=== PATIENT | female | born 1940 | race Caucasian/White ===

== ENCOUNTER 2017-04-22 09:18 | Inpatient (IN) | payer MEDICARE, OTHER, SELFPAY ==
[2017-04-22] VITALS (15 sets, daily range): BP systolic 125–149; BP diastolic 58–102; PULSE 68–90; RESP 15–20; TEMP 36.2–36.8; O2SAT 90–98; BMI 48.3; BMI 46.4; BMI 48.4
--- NOTE | 2017-04-22 09:45 | RAD_ITS ---
STUDY: X-RAY CHEST REASON FOR EXAM: Female, 76 years old. Cough and confusion. TECHNIQUE: Single AP portable view of the chest. COMPARISON: Comparison is made with prior study dated January 25, 2017. FINDINGS: EKG electrodes are seen. A right-sided portacatheter is seen. Pulmonary vascular redistribution and mild CHF. Small bilateral pleural effusions with underlying atelectasis and/or infiltration worse at the left lung base. Sternal cerclage wires and vascular clips are present from a prior sternotomy and coronary artery bypass graft procedure (CABG). Normal mediastinum and elder. Normal visualized pulmonary arteries. There is atherosclerotic calcification of the aortic arch with tortuosity. Normal visualized thoracic spine. Normal visualized ribs, clavicles, and shoulders. There is no demonstrated abnormality of the visualized soft tissue structures of the upper abdomen. RAD/Chest 1 View (Portable) IMPRESSION: CHF with small bilateral pleural effusions left greater than right and bibasilar atelectasis and/or infiltration. Electronically Signed: Rusty Martines MD at 10:50 EDT Tel [phone], Service support ,
--- NOTE | 2017-04-22 09:45 | EKG12_ITS ---
Test Reason : WEAKNESS Blood Pressure : / mmHG Vent. Rate : 077 BPM Atrial Rate : 047 BPM P-R Int : 000 ms QRS Dur : 072 ms QT Int : 330 ms P-R-T Axes : 000 058 029 degrees QTc Int : 373 ms Atrial fibrillation Low voltage QRS Nonspecific ST and T wave abnormality Abnormal ECG Confirmed by CHERIE KITCHEN, DEISY ([id number]), editor trade journal ANN EGAN ([id number]) on 04/26/2017 2:34:17 PM Referred By: JIMBO Confirmed By:DEISY CRESPO MD
[2017-04-22 10:36] LABS: Allen Test POS; Base Excess 19 mmol/L (-2 to +2); Bicarbonate 42.8 mmol/L (22-26); Blood Gas Specimen Type ART; O2 Delivery Device Nasal Can; PO2 59 mmHG (75-100); SITE L Radial; SO2 90 % (95-99); Time Given 1028; Total Carbon Dioxide 45 mmol/L; pCO2 63.2 mmHg (35-45); pH 7.44 (7.35-7.45)
--- NOTE | 2017-04-22 10:39 | ED.VISSUMM ---
- ER Visit Summary Date of Service: 04/22/17 Chief Complaint: Fatigue and confusion History of Present Illness: The patient is a 76 F presenting to the emergency department for evaluation secondary to generalized fatigue weakness and confusion. Patient has a complex medical history including coronary artery disease, COPD, diabetes, hypertension, elevated cholesterol, chronic kidney disease, A. fib, and chronic debility. Apparently over the course of the last 2 days she has been having increasing confusion, generalized weakness, and fatigue. She does endorse that she has been having a cough and mild sore throat. She denies any fevers nausea vomiting or diarrhea. Patient's daughter is a nurse, and apparently she took a urine sample today and it did show up as positive for infection. Patient has been experiencing nonlateralizing weakness and increased difficulty with ambulating. Review of systems otherwise negative. Physical Examination: Vital signs within normal limits. Obese female no acute distress somewhat sedate. Head normocephalic atraumatic. Dry mucous membranes noted. Neck supple heart irregular lungs sounds showed evidence of rhonchi and wheezes in the upper and lower lung fernandez. Abdomen soft nontender. +1 bilaterally symmetric peripheral edema. Skin was normal color. Patient was alert and oriented but somewhat sedate. Remainder physical otherwise unremarkable. Test Results: EKG shows A. fib with a rate of [address] segments and low voltage consistent with prior EKG. CBC shows leukocytosis of 14.6, chemistry shows CO2 retention of 40, liver panel shows elevated alkaline phosphatase, lactate negative, ABG remarkable for chronic respiratory acidosis, chest x-ray shows CHF with bilateral effusions left greater than right, urinalysis shows evidence of infection Emergency Department Course and Treatment: Patient presented for evaluation secondary to altered mentation and a possible UTI. Workup was noted as above and does show evidence of a UTI. Patient actually does not technically meet sepsis criteria at this point, but cultures were obtained anyway. Patient was given a dose of Rocephin. Given the patient's chronic illness and her concomitant delirium I do believe that she requires admission. I discussed this with the hospitalist. Disposition: Admission Impression: 1. UTI 2. Delirium ED Disposition - Plan for ED Patient: Chief Complaint: Confusion
[2017-04-22 11:11] LABS: Absolute Lymphocyte Count 1.37 X10^3/ul (0.83-4.51); Absolute Neutrophil Count 12.3 X10^3/uL (2.0-7.7); Basophil# 0.05 X10^3/uL; Basophil% 0.3 % (0-1); Eosinophil# 0.09 X10^3/uL; Eosinophils% 0.6 % (0-5); Hematocrit 39.3 % (37-47); Hemoglobin 11.3 g/dl (12.0-15.0); Lymphocyte # 1.37 X10^3/ul (4.0); Lymphocyte % 9.4 % (19-41); Mean Corp Hgb Conc 28.8 g/gl (32-36); Mean Corpuscular Hgb 26.6 pg (27.0-32.0); Mean Corpuscular Volume 92.5 fL (81-99); Mean Platelet Vol. 9.4 fl (6.2-12.0); Monocyte# 0.76 X10^3/uL; Monocyte% 5.2 % (0-10); Neutrophil # 12.31 X10^3/uL (2.7-7.7); Neutrophil % 84.2 % (47-70); POSITIVE COUNT NO; POSITIVE DIFFERENTIAL NO; POSITIVE MORPHOLOGY NO; Platelet Count 320 K/mm3 (150-450); Red Blood Count 4.25 M/mm3 (4.2-5.4); White Blood Count 14.6 K/mm3 (4.4-11.0)
[2017-04-22 11:24] LABS: International Normalized Ratio 1.4; Prothrombin Time (Protime)PT. 16.7 SECONDS (11.7-14.9)
[2017-04-22 11:25] LABS: Partial Thromboplast Time 38.1 Seconds (24.1-36.2)
[2017-04-22 11:26] LABS: ALB/GLOB Ratio 0.6 RATIO (0.9-2.4); AST(SGOT) 13 U/L (15-37); Alanine Aminotransfer ALT/SGPT 16 U/L (12-78); Albumin, Serum 2.7 g/dL (3.4-5.0); Alkaline Phosphatase 130 U/L (45-117); Anion Gap 5 (5-15); BUN 19 mg/dL (7-18); BUN/Creat Ratio 18.4 RATIO (10-20); Calcium,Total 9.2 mg/dL (8.5-10.1); Chloride 92 mmol/L (98-107); Creatinine, Serum 1.03 mg/dL (0.55-1.02); EST Glomerular Filtration Rate 55 mL/min (>60); Est Glom Filt Rate - Afr Amer 67 mL/min (>60); Estimated Creatinine Clearance 39.04 ml/min; Globulin 4.2 g/dL (2.3-3.5); Glucose 191 mg/dL (70-110); Potassium 4.1 mmol/L (3.5-5.1); Protein, Total 6.9 g/dL (6.4-8.2); Sodium Level 137 mmol/L (136-145)
[2017-04-22 11:51] LABS: Lactic Acid 1.6 mmol/L (0.4-2.0)
[2017-04-22 12:05] LABS: Mucous, Urine 0 SEEN /hpf (<or=2+); Squamous Epithelial Cells - UA 0 SEEN /hpf (5-10)
[2017-04-22 12:16] LABS: Color, Urine Yellow (Yellow); Glucose, Dipstick NEGATIVE (Normal); Ketone-Dipstick Negative (Negative); Nitrite-Dipstick Negative (Negative); Occult Blood-Urine 150 /ul (Negative); Protein-Dipstick 30 mg/dl (Negative); Urine Bilirubin Dipstick Negative (Negative); Urine Clarity Turbid (Clear); Urine Urobilinogen 1 mg/dl (Normal); Urine pH 6.5 (5.0 - 8.0)
[2017-04-22 12:17] LABS: Leukocyte Esterase-Dipstick 500 /ul (Negative)
[2017-04-22 12:25] LABS: Bacteria 1+ /hpf (None Seen); Red Blood Cells-Urine 5-10 SEEN /hpf (0-5); White Blood Cells >100 SEEN /hpf (0-5); Yeast-Urine 4+ /hpf (None Seen)
[2017-04-22 16:36] LABS: Bedside Glucose 135 mg/dL (70-110)
[2017-04-22] MEDS: Ipratropium/Albuterol Sulfate 3 ML AMPUL.NEB INHALATION ×2 (16:54→22:52)
--- NOTE | 2017-04-22 17:17 | PCM.HP.STD ---
Problem List (1) Acute cystitis Status: Acute Qualifiers: Hematuria presence: without hematuria Qualified Code(s): N30.00 - Acute cystitis without hematuria (2) Mental status change Status: Acute Qualifiers: Altered mental status type: delirium Qualified Code(s): R41.0 - Disorientation, unspecified (3) Anxiety Status: Chronic (4) Atrial fibrillation Status: Chronic Qualifiers: Atrial fibrillation type: chronic Qualified Code(s): I48.2 - Chronic atrial fibrillation (5) Benign hypertension Status: Chronic (6) COPD, severe Status: Chronic Comment: With chronic respiration failure (7) Chronic low back pain Status: Chronic (8) Chronic respiratory failure Status: Chronic Qualifiers: Respiratory failure complication: hypoxia and hypercapnia Comment: On 4 L/m at baseline (9) Coronary artery disease Status: Chronic Qualifiers: Coronary Disease-Associated Artery/Lesion type: [place] artery [place] vs. transplanted heart: [place] heart Associated angina: without angina Qualified Code(s): I25.10 - Atherosclerotic heart disease of [place] coronary artery without angina pectoris Comment: Status post CABG (10) Obesity Status: Chronic Qualifiers: Obesity type: due to excess calories Obesity classification: adult class 3 (BMI >= 40) Serious obesity comorbidity presence: with serious comorbidity Body mass index: BMI 45.0-49.9 Qualified Code(s): E66.09 - Other obesity due to excess calories; Z68.42 - Body mass index (BMI) 45.0-49.9, adult (11) Type II diabetes mellitus Status: Chronic Qualifiers: Diabetes mellitus complication status: with neurologic complications Diabetes mellitus complication detail: with autonomic neuropathy Diabetes mellitus termite control technician insulin use: with termite control technician use Qualified Code(s): E11.43 - Type 2 diabetes mellitus with diabetic autonomic (poly)neuropathy; Z79.4 - senior care (current) use of insulin History of Present Illness Date of Admission: 04/22/17 Chief Complaint: Confusion, lethargy. Patient is a 76 years old female with multiple medical problems, brought to ED for 2 days history of increasing lethargy and confusion, admitted on 04/22/17. She has chronic respiratory failure with home oxygen with underling COPD, probable obese hypoventilation syndrome, and untreated sleep apnea. In ED, she was found to have mildly elevated WBC to 14.6. Vital signs were stable, and UA was positive. Serum CO2 was 40, ABG was done. PH is 7.44 and PCO 2 es 63, which are actually close to her baseline. She did not wake up during the interview, history was taken from her . Other than hypersomnolence, lethargy, and confusion, no other symptoms. She has chronic productive cough which is unchanged, but she did not have any additional urinary symptoms. Past Medical History Past Medical History (Chronic Problems): Chronic Problems Anxiety (Chronic) Atrial fibrillation (Chronic) Benign hypertension (Chronic) COPD, severe (Chronic) With chronic respiration failure Chronic low back pain (Chronic) Chronic respiratory failure (Chronic) On 4 L/m at baseline Coronary artery disease (Chronic) Status post CABG Diabetic gastroparesis (Chronic) Hx of CABG (Chronic) Hyperlipidemia (Chronic) Obesity (Chronic) S/P CABG x 3 (Chronic) Tobacco dependence syndrome (Chronic) Type II diabetes mellitus (Chronic) Allergies No Known Allergies Allergy (Verified 04/22/17 09:23) Home Medications: Ambulatory Orders Medication Instructions Recorded Apixaban [Eliquis] 5 mg PO BID 03/31/17 Atorvastatin Calcium [Lipitor] 40 mg PO QHS 03/31/17 Ferrous Sulfate [Iron] 325 mg PO DAILY 03/31/17 Furosemide [Lasix] 40 mg PO LUNCH 03/31/17 Furosemide [Lasix] 80 mg PO DAILY 03/31/17 Gabapentin [Neurontin] 300 mg PO BIDCM 03/31/17 Gabapentin [Neurontin] 600 mg PO QHS 03/31/17 Guaifenesin [Mucinex] 1,200 mg PO BID 03/31/17 Insulin Aspart [Novolog Flexpen 10 units SC TIDCM 03/31/17 ([facility])] Insulin Detemir [Levemir] 35 unit SQ BID 03/31/17 Isosorbide Mononitrate [Imdur] 30 mg PO DAILY 03/31/17 Magnesium Oxide [Mag-Ox 400] 400 mg PO QHS 03/31/17 MorphINE [MS Contin] 15 mg PO BID 03/31/17 Multivitamins,Therapeutic 1 tablet PO DAILY 03/31/17 [Multivitamin] Oxybutynin [Ditropan] 5 mg PO DAILY 03/31/17 Oxycodone [Oxyir] 1 - 2 tab PO Q4H PRN 03/31/17 Pantoprazole Sodium [Protonix] 40 mg PO DAILY 03/31/17 Polyethylene Glycol 3350 [Miralax] 17 gm PO DAILY 03/31/17 Potassium Chloride [K-Dur] 20 meq PO QHS 03/31/17 Spironolactone [Aldactone] 25 mg PO DAILY 03/31/17 Venlafaxine HCl [Venlafaxine HCl 225 mg PO DAILY 03/31/17 ER] Insulin Aspart [Novolog Flexpen See Protocol SC TIDCM 04/22/17 ([facility])] Ipratropium/Albuterol Sulfate 3 ml INHALATION Q6HWA.RT 04/22/17 [Duoneb] Lorazepam [Ativan] 0.5 mg PO TID PRN PRN 04/22/17 Surgical History: cataract, coronary bypass surgery, - - ankle surgery and skin grafts-left leg Psychiatric History: - - Dementia GRID CASTER History: No pertinent GRID CASTER history Smoking Status: Former smoker - *Family History Maternal History Items: Heart Disease, Hypertension, Stroke Paternal History Items: Hypertension, - - TB Sibling History Items: Cancer, Diabetes, Heart Disease, Renal Disease, - - TB Review of Systems Unable to obtain accurate/complete ROS d/t: Patient is not fully awke and confused. History taken from her . VTE Information - Inpt Only VTE Present on Admission: No VTE Mechan Device Prophylaxis: None VTE Pharm Prophylaxis ordered?: Yes Patient Problems: Active and Suspected Problems Acute cystitis (Acute) Mental status change (Acute) Objective: In general, patient is obese elderly female. She is somnolent / lethargic. HEENT: Head is atraumatic, and normocephalic. Pupils are equal, round, and reactive to light and accommodations. Neck is supple. There is no lymphadenopathy, or thyromegaly. Oral mucosa is pink. There are no lesions. Heart: Auscultation is normal with regular rhythm and rate. There is no extra heart sounds, or murmurs. S1 and S2 are present. Point of maximal impulse is not displaced. Lungs: Upper airway rhonchi. Diminished breath sounds bilaterally. Abdomen: Abdominal wall is non-tender, and non-distended. Obese. There is no palpable mass or organomegaly. Normoactive bowel sounds are present. Extremities: There is no cyanosis or clubbing. Peripheral pulses are palpable. There is no edema. Fixed left ankle from previous infection. Skin: There are no any skin discoloration or lesions. Dry. Neurological: CN II - XII are grossly intact. She is able to move all extremities. No further examination was done due to her mental status. - Physical Exam Vital Signs Temp Pulse Resp BP Pulse Ox 97.5 F 68 20 125/58 94 04/22/17 15:30 04/22/17 16:55 04/22/17 16:55 04/22/17 15:30 04/22/17 15:30 Oxygen Flow Rate 6 Oxygen Delivery Method Venturi Mask Weight: 262 lb 2.074 oz Body Mass Index (BMI) 46.4 POC Glucose 04/22/17 16:10 POC Glucose 135 H Diagnostic Data Chest X-Ray 04/22/17 09:45 IMPRESSION: CHF with small bilateral pleural effusions left greater than right and bibasilar atelectasis and/or infiltration. Electronically Signed: Rusty Martines MD at 10:50 EDT Tel [phone], Service support , Assessment/Plan Active and Suspected Problems Acute cystitis (Acute) Mental status change (Acute) Patient is a 76 years old female with multiple medical problems, brought to ED for 2 days history of increasing lethargy and confusion, admitted on 04/22/17. She has chronic respiratory failure with home oxygen with underling COPD, probable obese hypoventilation syndrome, and untreated sleep apnea. In ED, she was found to have mildly elevated WBC to 14.6. Vital signs were stable, and UA was positive. Serum CO2 was 40, ABG was done. PH is 7.44 and PCO 2 is 63, which are actually close to her baseline. She did not wake up during the interview, history was taken from her . Other than hypersomnolence, lethargy, and confusion, no other symptoms. She has chronic productive cough which is unchanged, but she did not have any additional urinary symptoms. #1 Acute mental status change with delirium. Likely due to infectious process with acute cystitis. CO2 narcolepsy is possible, but her PCO2 appears to be close to her baseline. Treat cystitis with antibiotics. #2 Acute cystitis. Await blood culture and urine culture. UA positive. Ceftriaxone 1 gram IVPB once a day. #3 Chronic respiratory failure with hypoxemia and hypercapnia. Continue oxygen. She is on bronchodilator aerosol treatment only. Continue. Keep Oxygen saturation just around 90% to avoid worsening of CO2 retention. #4 COPD. With untreated sleep apnea and probable obese hypoventilation. She had refused CPAP in the past. 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 Hold Meal time aspart 10 units tid. Reduce Levemir to 25 units once a day from bid due to her mental status change. She is not awake enough to keep oral intake. BS check AC/HS. #6 Atrial fibrillation, chronic. Telemetry monitoring. Rate controlled without negative chronotropic agents. On Eliquis for anticoagulation. #7 Coronary artery disease. Continue statin. She is not on BB or aspirin. #8 chronic CHF, with diastolic dysfunction. 2D-echocardiogram 12/15/16 showed preserved LV function, EF 65%. LVH. RVSP 42 mmHg. She is dry. IVF today. Hold Lasix. Reevaluate in AM. #9 Mild pulmonary hypertension. RVSP 42 mmHg as above per 2D-echocardiogram. She is on oxygen. VTE prophylaxis: PO Eliquis. GI prophylaxis: PPI po. Patient is full code. Code status discussed with her on 04/22/17. Disposition: to be determined.
--- NOTE | 2017-04-22 17:28 | HP.PCM_ITS ---
Problem List (1) Acute cystitis Status: Acute Qualifiers: Hematuria presence: without hematuria Qualified Code(s): N30.00 - Acute cystitis without hematuria (2) Mental status change Status: Acute Qualifiers: Altered mental status type: delirium Qualified Code(s): R41.0 - Disorientation, unspecified (3) Anxiety Status: Chronic (4) Atrial fibrillation Status: Chronic Qualifiers: Atrial fibrillation type: chronic Qualified Code(s): I48.2 - Chronic atrial fibrillation (5) Benign hypertension Status: Chronic (6) COPD, severe Status: Chronic Comment: With chronic respiration failure (7) Chronic low back pain Status: Chronic (8) Chronic respiratory failure Status: Chronic Qualifiers: Respiratory failure complication: hypoxia and hypercapnia Comment: On 4 L/m at baseline (9) Coronary artery disease Status: Chronic Qualifiers: Coronary Disease-Associated Artery/Lesion type: [place] artery [place] vs. transplanted heart: [place] heart Associated angina: without angina Qualified Code(s): I25.10 - Atherosclerotic heart disease of [place] coronary artery without angina pectoris Comment: Status post CABG (10) Obesity Status: Chronic Qualifiers: Obesity type: due to excess calories Obesity classification: adult class 3 (BMI >= 40) Serious obesity comorbidity presence: with serious comorbidity Body mass index: BMI 45.0-49.9 Qualified Code(s): E66.09 - Other obesity due to excess calories; Z68.42 - Body mass index (BMI) 45.0-49.9, adult (11) Type II diabetes mellitus Status: Chronic Qualifiers: Diabetes mellitus complication status: with neurologic complications Diabetes mellitus complication detail: with autonomic neuropathy Diabetes mellitus intermediate designer insulin use: with intermediate designer use Qualified Code(s): E11.43 - Type 2 diabetes mellitus with diabetic autonomic (poly)neuropathy; Z79.4 - custodial (current) use of insulin History of Present Illness Date of Admission: 04/22/17 Chief Complaint: Confusion, lethargy. Patient is a 76 years old female with multiple medical problems, brought to ED for 2 days history of increasing lethargy and confusion, admitted on 04/22/17. She has chronic respiratory failure with home oxygen with underling COPD, probable obese hypoventilation syndrome, and untreated sleep apnea. In ED , she was found to have mildly elevated WBC to 14.6. Vital signs were stable, and UA was positive. Serum CO2 was 40, ABG was done. PH is 7.44 and PCO 2 es 63, which are actually close to her baseline. She did not wake up during the interview, history was taken from her . Other than hypersomnolence, lethargy, and confusion, no other symptoms. She has chronic productive cough which is unchanged, but she did not have any additional urinary symptoms. Past Medical History Past Medical History (Chronic Problems): Chronic Problems Anxiety (Chronic) Atrial fibrillation (Chronic) Benign hypertension (Chronic) COPD, severe (Chronic) With chronic respiration failure Chronic low back pain (Chronic) Chronic respiratory failure (Chronic) On 4 L/m at baseline Coronary artery disease (Chronic) Status post CABG Diabetic gastroparesis (Chronic) Hx of CABG (Chronic) Hyperlipidemia (Chronic) Obesity (Chronic) S/P CABG x 3 (Chronic) Tobacco dependence syndrome (Chronic) Type II diabetes mellitus (Chronic) Allergies No Known Allergies Allergy (Verified 04/22/17 09:23) Home Medications: Ambulatory Orders Medication Instructions Recorded Apixaban [Eliquis] 5 mg PO BID 03/31/17 Atorvastatin Calcium [Lipitor] 40 mg PO QHS 03/31/17 Ferrous Sulfate [Iron] 325 mg PO DAILY 03/31/17 Furosemide [Lasix] 40 mg PO LUNCH 03/31/17 Furosemide [Lasix] 80 mg PO DAILY 03/31/17 Gabapentin [Neurontin] 300 mg PO BIDCM 03/31/17 Gabapentin [Neurontin] 600 mg PO QHS 03/31/17 Guaifenesin [Mucinex] 1,200 mg PO BID 03/31/17 Insulin Aspart [Novolog Flexpen 10 units SC TIDCM 03/31/17 ([facility])] Insulin Detemir [Levemir] 35 unit SQ BID 03/31/17 Isosorbide Mononitrate [Imdur] 30 mg PO DAILY 03/31/17 Magnesium Oxide [Mag-Ox 400] 400 mg PO QHS 03/31/17 MorphINE [MS Contin] 15 mg PO BID 03/31/17 Multivitamins,Therapeutic 1 tablet PO DAILY 03/31/17 [Multivitamin] Oxybutynin [Ditropan] 5 mg PO DAILY 03/31/17 Oxycodone [Oxyir] 1 - 2 tab PO Q4H PRN 03/31/17 Pantoprazole Sodium [Protonix] 40 mg PO DAILY 03/31/17 Polyethylene Glycol 3350 [Miralax] 17 gm PO DAILY 03/31/17 Potassium Chloride [K-Dur] 20 meq PO QHS 03/31/17 Spironolactone [Aldactone] 25 mg PO DAILY 03/31/17 Venlafaxine HCl [Venlafaxine HCl 225 mg PO DAILY 03/31/17 ER] Insulin Aspart [Novolog Flexpen See Protocol SC TIDCM 04/22/17 ([facility])] Ipratropium/Albuterol Sulfate 3 ml INHALATION Q6HWA.RT 04/22/17 [Duoneb] Lorazepam [Ativan] 0.5 mg PO TID PRN PRN 04/22/17 Surgical History: cataract, coronary bypass surgery, - - ankle surgery and skin grafts-left leg Psychiatric History: - - Dementia CLINICAL SERVICES CONSULTANT History: No pertinent CLINICAL SERVICES CONSULTANT history Smoking Status: Former smoker - *Family History Maternal History Items: Heart Disease, Hypertension, Stroke Paternal History Items: Hypertension, - - TB Sibling History Items: Cancer, Diabetes, Heart Disease, Renal Disease, - - TB Review of Systems Unable to obtain accurate/complete ROS d/t: Patient is not fully awke and confused. History taken from her . VTE Information - Inpt Only VTE Present on Admission: No VTE Mechan Device Prophylaxis: None VTE Pharm Prophylaxis ordered?: Yes Patient Problems: Active and Suspected Problems Acute cystitis (Acute) Mental status change (Acute) Objective: In general, patient is obese elderly female. She is somnolent / lethargic. HEENT: Head is atraumatic, and normocephalic. Pupils are equal, round, and reactive to light and accommodations. Neck is supple. There is no lymphadenopathy, or thyromegaly. Oral mucosa is pink. There are no lesions. Heart: Auscultation is normal with regular rhythm and rate. There is no extra heart sounds, or murmurs. S1 and S2 are present. Point of maximal impulse is not displaced. Lungs: Upper airway rhonchi. Diminished breath sounds bilaterally. Abdomen: Abdominal wall is non-tender, and non-distended. Obese. There is no palpable mass or organomegaly. Normoactive bowel sounds are present. Extremities: There is no cyanosis or clubbing. Peripheral pulses are palpable. There is no edema. Fixed left ankle from previous infection. Skin: There are no any skin discoloration or lesions. Dry. Neurological: CN II - XII are grossly intact. She is able to move all extremities. No further examination was done due to her mental status. - Physical Exam Vital Signs Temp Pulse Resp BP Pulse Ox 97.5 F 68 20 125/58 94 04/22/17 15:30 04/22/17 16:55 04/22/17 16:55 04/22/17 15:30 04/22/17 15:30 Oxygen Flow Rate 6 Oxygen Delivery Method Venturi Mask Weight: 262 lb 2.074 oz Body Mass Index (BMI) 46.4 POC Glucose 04/22/17 16:10 POC Glucose 135 H Diagnostic Data Chest X-Ray 04/22/17 09:45 IMPRESSION: CHF with small bilateral pleural effusions left greater than right and bibasilar atelectasis and/or infiltration. Electronically Signed: Rusty Martines MD at 10:50 EDT Tel [phone], Service support , Assessment/Plan Active and Suspected Problems Acute cystitis (Acute) Mental status change (Acute) Patient is a 76 years old female with multiple medical problems, brought to ED for 2 days history of increasing lethargy and confusion, admitted on 04/22/17. She has chronic respiratory failure with home oxygen with underling COPD, probable obese hypoventilation syndrome, and untreated sleep apnea. In ED , she was found to have mildly elevated WBC to 14.6. Vital signs were stable, and UA was positive. Serum CO2 was 40, ABG was done. PH is 7.44 and PCO 2 is 63, which are actually close to her baseline. She did not wake up during the interview, history was taken from her . Other than hypersomnolence, lethargy, and confusion, no other symptoms. She has chronic productive cough which is unchanged, but she did not have any additional urinary symptoms. #1 Acute mental status change with delirium. Likely due to infectious process with acute cystitis. CO2 narcolepsy is possible, but her PCO2 appears to be close to her baseline. Treat cystitis with antibiotics. #2 Acute cystitis. Await blood culture and urine culture. UA positive. Ceftriaxone 1 gram IVPB once a day. #3 Chronic respiratory failure with hypoxemia and hypercapnia. Continue oxygen. She is on bronchodilator aerosol treatment only. Continue. Keep Oxygen saturation just around 90% to avoid worsening of CO2 retention. #4 COPD. With untreated sleep apnea and probable obese hypoventilation. She had refused CPAP in the past. 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 Hold Meal time aspart 10 units tid. Reduce Levemir to 25 units once a day from bid due to her mental status change. She is not awake enough to keep oral intake. BS check AC/HS. #6 Atrial fibrillation, chronic. Telemetry monitoring. Rate controlled without negative chronotropic agents. On Eliquis for anticoagulation. #7 Coronary artery disease. Continue statin. She is not on BB or aspirin. #8 chronic CHF, with diastolic dysfunction. 2D-echocardiogram 12/15/16 showed preserved LV function, EF 65%. LVH. RVSP 42 mmHg. She is dry. IVF today. Hold Lasix. Reevaluate in AM. #9 Mild pulmonary hypertension. RVSP 42 mmHg as above per 2D-echocardiogram. She is on oxygen. VTE prophylaxis: PO Eliquis. GI prophylaxis: PPI po. Patient is full code. Code status discussed with her on 04/22/17. Disposition: to be determined.
[2017-04-22] MEDS: 0.9% Normal Saline 1,000 ML 75 ML IV (17:37)
[2017-04-22] MEDS: Acetaminophen 325 MG Tablet 650 MG PO (19:34)
[2017-04-22] MEDS: APIXABAN 5 MG TABLET PO (22:44)
[2017-04-22] MEDS: Magnesium Oxide 400 MG Tablet PO (22:46)
[2017-04-22] MEDS: guaiFENesin 1,200 MG Tablet 1200 MG PO (22:46)
[2017-04-22] MEDS: Atorvastatin Calcium 40 MG Tablet PO (22:46)
[2017-04-22] MEDS: Gabapentin 600 MG Tablet PO (22:49)
[2017-04-23] VITALS (11 sets, daily range): BP systolic 118–146; BP diastolic 51–70; PULSE 65–78; RESP 16–22; TEMP 36.3–37.1; O2SAT 92–96
[2017-04-23 03:27] LABS: Anion Gap 9 (5-15); BUN 20 mg/dL (7-18); BUN/Creat Ratio 20.1 RATIO (10-20); Calcium,Total 8.9 mg/dL (8.5-10.1); Chloride 93 mmol/L (98-107); EST Glomerular Filtration Rate 58 mL/min (>60); Est Glom Filt Rate - Afr Amer 70 mL/min (>60); Estimated Creatinine Clearance 40.21 ml/min; Glucose 159 mg/dL (70-110); Potassium 3.9 mmol/L (3.5-5.1); Sodium Level 139 mmol/L (136-145)
[2017-04-23 03:34] LABS: Hematocrit 36.6 % (37-47); Hemoglobin 10.6 g/dl (12.0-15.0); Mean Corpuscular Hgb 26.4 pg (27.0-32.0); Mean Platelet Vol. 9.3 fl (6.2-12.0); Platelet Count 301 K/mm3 (150-450); RBC Distribution Width CV 18.1 % (11.6-14.6); RBC Distribution Width SD 60.7 fl (35.1-43.9); Red Blood Count 4.02 M/mm3 (4.2-5.4); White Blood Count 9.9 K/mm3 (4.4-11.0)
[2017-04-23 03:38] LABS: Scan Indicated on CBC? Y/N NO
[2017-04-23 04:51] LABS: Bedside Glucose 183 mg/dL (70-110)
[2017-04-23] MEDS: 0.9% Normal Saline 1,000 ML 75 ML IV ×2 (06:36→20:31)
[2017-04-23 06:46] LABS: Bedside Glucose 170 mg/dL (70-110)
[2017-04-23] MEDS: Ipratropium/Albuterol Sulfate 3 ML AMPUL.NEB INHALATION ×2 (07:04→13:03)
[2017-04-23] MEDS: Furosemide 80 MG Tablet PO (09:30)
[2017-04-23] MEDS: Gabapentin 300 MG Capsule PO ×2 (09:31→16:35)
[2017-04-23] MEDS: Venlafaxine XR 75 MG Capsule 225 MG PO (09:31)
[2017-04-23] MEDS: Polyethylene Glycol 3350 17 GM PACKET PO (09:34)
[2017-04-23] MEDS: guaiFENesin 1,200 MG Tablet 1200 MG PO ×2 (09:34→22:35)
[2017-04-23] MEDS: Spironolactone 25 MG Tablet PO (09:34)
[2017-04-23] MEDS: Pantoprazole Sodium 40 MG Tablet PO (09:34)
[2017-04-23] MEDS: Isosorbide Mononitrate 30 MG Tablet PO (09:34)
[2017-04-23] MEDS: Tolterodine Tartrate 2 MG CAP.SA PO (09:35)
[2017-04-23] MEDS: Multivitamins,Therapeutic Tablet 1 TABLET PO (09:35)
[2017-04-23] MEDS: APIXABAN 5 MG TABLET PO ×2 (09:35→22:33)
[2017-04-23] MEDS: Ferrous Sulfate 325 MG Tablet PO (09:35)
[2017-04-23] MEDS: Furosemide 40 MG Tablet PO (11:34)
[2017-04-23] MEDS: LORazepam 0.5 MG Tablet PO ×2 (11:38→22:44)
[2017-04-23] MEDS: oxyCODONE 5 MG Tablet PO ×2 (11:38→17:34)
[2017-04-23 11:46] LABS: Bedside Glucose 288 mg/dL (70-110)
--- NOTE | 2017-04-23 14:50 | CASEMGMT ---
TERESITA LLANOS reviewed chart secondary to patient's diagnosis and age. Patient did work with therapy and is requesting SNF placement. TERESITA LLANOS notified web content & social media manager who will follow-up with patient. Patient is current with home health.
--- NOTE | 2017-04-23 15:03 | CASEMGMT ---
Addendum entered by Zahida Mendoza 04/23/17 15:13: Green sheet placed on chart w/order to resume home health care in event pt goes home on weekend. RANDY Velasquez, [employer] Original Note: See assessment. SW spoke w/pt and in room in regard to discharge plan. Pt was considering SNF, however does not want to pay privately if pt does not get a 3 day inpt stay. SW explained that at present pt is here observation so may not qualify for SNF under Medicare. Pt and both state if pt does not go under Medicare will go home. Pt was in [facility] recently, left at the beginning of February. SW explained if pt goes home over the weekend, will make sure that home health is notified. If pt is still here on Tuesday, SW/CM will see pt to review discharge plan. Pt and state understanding. RE VelasquezS
[2017-04-23 16:46] LABS: Bedside Glucose 319 mg/dL (70-110)
--- NOTE | 2017-04-23 19:33 | PCM.PROGNOTE ---
Patient Problems: Active and Suspected Problems Acute cystitis (Acute) Mental status change (Acute) Subjective: She is awake and alert today. She denied of any chest pain or dyspnea, - Physical Exam General: Alert, Oriented x3, Cooperative, Well developed, Well nourished HEENT: Atraumatic, PERRLA, Normocephalic Oral: Moist Mucosa Neck: Supple, No JVD, Negative Carotid Bruits Lungs: No rhonchi, No wheeze, No rales, Diminished Cardiovascular: Regular rate, Regular Rhythm, Normal S1, Normal S2, No murmurs Abdomen: Bowel Sounds Present, Soft, Non Tender, Non-Distended, Obese Extremities: - - There is no cyanosis or clubbing. Peripheral pulses are palpable. There is no edema. Fixed left ankle from previous infection. Skin: No rashes, No breakdown, - - diffuse purpura of distal arms. Musculoskeletal: No Tenderness to Palpation of Joints or Extremities, No Muscle Wasting Lymphatic: No Cervical, Supraclavicular, or Inguinal Adenopathy Neurological: Cranial nerves II-XII grossly intact, Neuro grossly intact Psych/Mental Status: Normal Affect, Anxious, Alert and oriented to time, place, person, mood and affect Vital Signs Temp Pulse Resp BP Pulse Ox 97.9 F 78 18 118/65 93 04/23/17 14:02 04/23/17 14:59 04/23/17 14:02 04/23/17 14:02 04/23/17 14:02 POC Glucose 04/23/17 16:32 POC Glucose 319 H Active Medications Acetaminophen (Tylenol) 650 mg PO Q6H PRN PRN PRN Reason: Mild Pain (scale 0-3)/T>100.7 Last Admin: 04/22/17 19:34 Dose: 650 mg Albuterol Sulfate (Ventolin Aerosols) 2.5 mg INHALATION Q2H PRN PRN PRN Reason: DYSPNEA Albuterol/Ipratropium (Duoneb) 3 ml INHALATION Q6HWA.RT [facility] Last Admin: 04/23/17 19:00 Dose: Not Given Apixaban (Eliquis) 5 mg PO BID [facility] Last Admin: 04/23/17 09:35 Dose: 5 mg Atorvastatin Calcium (Lipitor) 40 mg PO QHS [facility] Last Admin: 04/22/17 22:46 Dose: 40 mg Bisacodyl (Dulcolax) 10 mg PO DAILY PRN PRN PRN Reason: Constipation Dextrose (D50w Syringe) 0 gm IV X1 PRN; Protocol PRN Reason: Hypoglycemia Docusate Sodium (Colace) 200 mg PO BID PRN PRN PRN Reason: Constipation Ferrous Sulfate ([facility]errous Sulfate) [facility] Last Admin: 04/23/17 09:35 Dose: 325 mg Furosemide (Lasix) 40 mg PO LUNCH [facility] Last Admin: 04/23/17 11:34 Dose: 40 mg Furosemide (Lasix) 80 mg PO DAILY@0800 [facility] Last Admin: 04/23/17 09:30 Dose: 80 mg Gabapentin (Neurontin) [facility] Last Admin: 04/23/17 16:35 Dose: 300 mg Gabapentin (Neurontin) 600 mg PO QHS [facility] Last Admin: 04/22/17 22:49 Dose: 600 mg Glucagon () 1 mg IM .X1 PRN PRN Reason: Hypoglycemia Guaifenesin (Mucinex) 1,200 mg PO BID [facility] Last Admin: 04/23/17 09:34 Dose: 1,200 mg Ceftriaxone Sodium 1 gm/ N/A 50 mls @ 100 mls/hr IV Q24 [facility] Last Admin: 04/23/17 09:35 Dose: 100 mls/hr Sodium Chloride () 1,000 mls @ 75 mls/hr IV .[id number] [facility] Last Admin: 04/23/17 06:36 Dose: 75 mls/hr Insulin Aspart (Novolog Flexpen (Bkc)) 0 units SC ACHS [facility] PRN Reason: Protocol Last Admin: 04/23/17 16:35 Dose: 5 unit Insulin Detemir (Levemir (Bkc)) 35 units SC DAILY [facility] Last Admin: 04/23/17 11:31 Dose: 35 units Isosorbide Mononitrate (Imdur) 30 mg PO DAILY [facility] Last Admin: 04/23/17 09:34 Dose: 30 mg Lorazepam (Ativan) 0.5 mg PO TID PRN PRN PRN Reason: ANXIETY Last Admin: 04/23/17 11:38 Dose: 0.5 mg Magnesium Oxide (Mag-Ox 400) 400 mg PO QHS [facility] Last Admin: 04/22/17 22:46 Dose: 400 mg Multivitamins (Multivitamin) 1 tablet PO DAILY@0800 [facility] Last Admin: 04/23/17 09:35 Dose: 1 tablet Ondansetron HCl (Zofran) 4 mg IV Q6H PRN PRN PRN Reason: Nausea Oxycodone HCl (Oxyir) 5 mg PO Q6H PRN PRN PRN Reason: PAIN Last Admin: 04/23/17 17:34 Dose: 5 mg Pantoprazole Sodium (Protonix) 40 mg PO DAILY [facility] Last Admin: 04/23/17 09:34 Dose: 40 mg Polyethylene Glycol (Miralax) 17 gm PO DAILY [facility] Last Admin: 04/23/17 09:34 Dose: 17 gm Potassium Chloride (K-Dur) 20 meq PO QHS [facility] Last Admin: 04/22/17 22:45 Dose: 20 meq Sodium Chloride () 10 - 40 ml IV UD PRN PRN Reason: MULTILUMEN/HICMAN CATH FLUSH Spironolactone (Aldactone) 25 mg PO DAILY [facility] Last Admin: 04/23/17 09:34 Dose: 25 mg Tolterodine Tartrate (Detrol La) 2 mg PO DAILY [facility] Last Admin: 04/23/17 09:35 Dose: 2 mg Venlafaxine HCl (Effexor Xr) 225 mg PO DAILY [facility] Last Admin: 04/23/17 09:31 Dose: 225 mg Diagnostic Data Chest X-Ray 04/22/17 09:45 IMPRESSION: CHF with small bilateral pleural effusions left greater than right and bibasilar atelectasis and/or infiltration. Electronically Signed: Rusty Martines MD at 10:50 EDT Tel [phone], Service support , Assessment/Plan Active and Suspected Problems Acute cystitis (Acute) Mental status change (Acute) Patient is a 76 years old female with multiple medical problems, brought to ED for 2 days history of increasing lethargy and confusion, admitted on 04/22/17. She has chronic respiratory failure with home oxygen with underling COPD, probable obese hypoventilation syndrome, and untreated sleep apnea. In ED, she was found to have mildly elevated WBC to 14.6. Vital signs were stable, and UA was positive. Serum CO2 was 40, ABG was done. PH is 7.44 and PCO 2 is 63, which are actually close to her baseline. She did not wake up during the interview, history was taken from her . Other than hypersomnolence, lethargy, and confusion, no other symptoms. She has chronic productive cough which is unchanged, but she did not have any additional urinary symptoms. Following day, she is doing much better, awake and oriented. #1 Acute mental status change with delirium. Likely due to infectious process with acute cystitis. CO2 narcolepsy is possible, but her PCO2 appears to be close to her baseline. She is doing better on the following day, probably due to infectious process as the underling problems. Treat cystitis with antibiotics. #2 Acute cystitis. Await blood culture and urine culture. UA positive. Ceftriaxone 1 gram IVPB once a day. #3 Chronic respiratory failure with hypoxemia and hypercapnia. Continue oxygen. She is on bronchodilator aerosol treatment only. Continue. Keep Oxygen saturation just around 90% to avoid worsening of CO2 retention. #4 COPD. With untreated sleep apnea and probable obese hypoventilation. She had refused CPAP in the past. 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 Hold Meal time aspart 10 units tid. Reduce Levemir to 25 units once a day from bid due to her mental status change. She is not awake enough to keep oral intake. BS check AC/HS. #6 Atrial fibrillation, chronic. Telemetry monitoring. Rate controlled without negative chronotropic agents. On Eliquis for anticoagulation. #7 Coronary artery disease. Continue statin. She is not on BB or aspirin. #8 chronic CHF, with diastolic dysfunction. 2D-echocardiogram 12/15/16 showed preserved LV function, EF 65%. LVH. RVSP 42 mmHg. She is dry. IVF today. Hold Lasix. Reevaluate in AM. #9 Mild pulmonary hypertension. RVSP 42 mmHg as above per 2D-echocardiogram. She is on oxygen. VTE prophylaxis: PO Eliquis. GI prophylaxis: PPI po. Patient is full code. Code status discussed with her on 04/22/17. Disposition: to be determined. PT/OT.
--- NOTE | 2017-04-23 19:37 | PN_ITS ---
Patient Problems: Active and Suspected Problems Acute cystitis (Acute) Mental status change (Acute) Subjective: She is awake and alert today. She denied of any chest pain or dyspnea, - Physical Exam General: Alert, Oriented x3, Cooperative, Well developed, Well nourished HEENT: Atraumatic, PERRLA, Normocephalic Oral: Moist Mucosa Neck: Supple, No JVD, Negative Carotid Bruits Lungs: No rhonchi, No wheeze, No rales, Diminished Cardiovascular: Regular rate, Regular Rhythm, Normal S1, Normal S2, No murmurs Abdomen: Bowel Sounds Present, Soft, Non Tender, Non-Distended, Obese Extremities: - - There is no cyanosis or clubbing. Peripheral pulses are palpable. There is no edema. Fixed left ankle from previous infection. Skin: No rashes, No breakdown, - - diffuse purpura of distal arms. Musculoskeletal: No Tenderness to Palpation of Joints or Extremities, No Muscle Wasting Lymphatic: No Cervical, Supraclavicular, or Inguinal Adenopathy Neurological: Cranial nerves II-XII grossly intact, Neuro grossly intact Psych/Mental Status: Normal Affect, Anxious, Alert and oriented to time, place, person, mood and affect Vital Signs Temp Pulse Resp BP Pulse Ox 97.9 F 78 18 118/65 93 04/23/17 14:02 04/23/17 14:59 04/23/17 14:02 04/23/17 14:02 04/23/17 14:02 POC Glucose 04/23/17 16:32 POC Glucose 319 H Active Medications Acetaminophen (Tylenol) 650 mg PO Q6H PRN PRN PRN Reason: Mild Pain (scale 0-3)/T>100.7 Last Admin: 04/22/17 19:34 Dose: 650 mg Albuterol Sulfate (Ventolin Aerosols) 2.5 mg INHALATION Q2H PRN PRN PRN Reason: DYSPNEA Albuterol/Ipratropium (Duoneb) 3 ml INHALATION Q6HWA.RT [facility] Last Admin: 04/23/17 19:00 Dose: Not Given Apixaban (Eliquis) 5 mg PO BID [facility] Last Admin: 04/23/17 09:35 Dose: 5 mg Atorvastatin Calcium (Lipitor) 40 mg PO QHS [facility] Last Admin: 04/22/17 22:46 Dose: 40 mg Bisacodyl (Dulcolax) 10 mg PO DAILY PRN PRN PRN Reason: Constipation Dextrose (D50w Syringe) 0 gm IV X1 PRN; Protocol PRN Reason: Hypoglycemia Docusate Sodium (Colace) 200 mg PO BID PRN PRN PRN Reason: Constipation Ferrous S[facility] ([facility]ate) [facility] Last Admin: 04/23/17 09:35 Dose: 325 mg Furosemide (Lasix) 40 mg PO LUNCH [facility] Last Admin: 04/23/17 11:34 Dose: 40 mg Furosemide (Lasix) 80 mg PO DAILY@0800 [facility] Last Admin: 04/23/17 09:30 Dose: 80 mg Gabap[facility]in) [facility] Last Admin: 04/23/17 16:35 Dose: 300 mg Gabapentin (Neurontin) 600 mg PO QHS [facility] Last Admin: 04/22/17 22:49 Dose: 600 mg Glucagon () 1 mg IM .X1 PRN PRN Reason: Hypoglycemia Guaifenesin (Mucinex) 1,200 mg PO BID [facility] Last Admin: 04/23/17 09:34 Dose: 1,200 mg Ceftriaxone Sodium 1 gm/ N/A 50 mls @ 100 mls/hr IV Q24 [facility] Last Admin: 04/23/17 09:35 Dose: 100 mls/hr Sodium Chloride () 1,000 mls @ 75 mls/hr IV .[id number] [facility] Last Admin: 04/23/17 06:36 Dose: 75 mls/hr Insulin Aspart (Novolog Flexpen (Bkc)) 0 units SC ACHS [facility] PRN Reason: Protocol Last Admin: 04/23/17 16:35 Dose: 5 unit Insulin Detemir (Levemir (Bkc)) 35 units SC DAILY [facility] Last Admin: 04/23/17 11:31 Dose: 35 units Isosorbide Mononitrate (Imdur) 30 mg PO DAILY [facility] Last Admin: 04/23/17 09:34 Dose: 30 mg Lorazepam (Ativan) 0.5 mg PO TID PRN PRN PRN Reason: ANXIETY Last Admin: 04/23/17 11:38 Dose: 0.5 mg Magnesium Oxide (Mag-Ox 400) 400 mg PO QHS [facility] Last Admin: 04/22/17 22:46 Dose: 400 mg Multivitamins (Multivitamin) 1 tablet PO DAILY@0800 [facility] Last Admin: 04/23/17 09:35 Dose: 1 tablet Ondansetron HCl (Zofran) 4 mg IV Q6H PRN PRN PRN Reason: Nausea Oxycodone HCl (Oxyir) 5 mg PO Q6H PRN PRN PRN Reason: PAIN Last Admin: 04/23/17 17:34 Dose: 5 mg Pantoprazole Sodium (Protonix) 40 mg PO DAILY [facility] Last Admin: 04/23/17 09:34 Dose: 40 mg Polyethylene Glycol (Miralax) 17 gm PO DAILY [facility] Last Admin: 04/23/17 09:34 Dose: 17 gm Potassium Chloride (K-Dur) 20 meq PO QHS [facility] Last Admin: 04/22/17 22:45 Dose: 20 meq Sodium Chloride () 10 - 40 ml IV UD PRN PRN Reason: MULTILUMEN/HICMAN CATH FLUSH Spironolactone (Aldactone) 25 mg PO DAILY [facility] Last Admin: 04/23/17 09:34 Dose: 25 mg Tolterodine Tartrate (Detrol La) 2 mg PO DAILY [facility] Last Admin: 04/23/17 09:35 Dose: 2 mg Venlafaxine HCl (Effexor Xr) 225 mg PO DAILY [facility] Last Admin: 04/23/17 09:31 Dose: 225 mg Diagnostic Data Chest X-Ray 04/22/17 09:45 IMPRESSION: CHF with small bilateral pleural effusions left greater than right and bibasilar atelectasis and/or infiltration. Electronically Signed: Rusty Martines MD at 10:50 EDT Tel [phone], Service support , Assessment/Plan Active and Suspected Problems Acute cystitis (Acute) Mental status change (Acute) Patient is a 76 years old female with multiple medical problems, brought to ED for 2 days history of increasing lethargy and confusion, admitted on 04/22/17. She has chronic respiratory failure with home oxygen with underling COPD, probable obese hypoventilation syndrome, and untreated sleep apnea. In ED , she was found to have mildly elevated WBC to 14.6. Vital signs were stable, and UA was positive. Serum CO2 was 40, ABG was done. PH is 7.44 and PCO 2 is 63, which are actually close to her baseline. She did not wake up during the interview, history was taken from her . Other than hypersomnolence, lethargy, and confusion, no other symptoms. She has chronic productive cough which is unchanged, but she did not have any additional urinary symptoms. Following day, she is doing much better, awake and oriented. #1 Acute mental status change with delirium. Likely due to infectious process with acute cystitis. CO2 narcolepsy is possible, but her PCO2 appears to be close to her baseline. She is doing better on the following day, probably due to infectious process as the underling problems. Treat cystitis with antibiotics. #2 Acute cystitis. Await blood culture and urine culture. UA positive. Ceftriaxone 1 gram IVPB once a day. #3 Chronic respiratory failure with hypoxemia and hypercapnia. Continue oxygen. She is on bronchodilator aerosol treatment only. Continue. Keep Oxygen saturation just around 90% to avoid worsening of CO2 retention. #4 COPD. With untreated sleep apnea and probable obese hypoventilation. She had refused CPAP in the past. 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 Hold Meal time aspart 10 units tid. Reduce Levemir to 25 units once a day from bid due to her mental status change. She is not awake enough to keep oral intake. BS check AC/HS. #6 Atrial fibrillation, chronic. Telemetry monitoring. Rate controlled without negative chronotropic agents. On Eliquis for anticoagulation. #7 Coronary artery disease. Continue statin. She is not on BB or aspirin. #8 chronic CHF, with diastolic dysfunction. 2D-echocardiogram 12/15/16 showed preserved LV function, EF 65%. LVH. RVSP 42 mmHg. She is dry. IVF today. Hold Lasix. Reevaluate in AM. #9 Mild pulmonary hypertension. RVSP 42 mmHg as above per 2D-echocardiogram. She is on oxygen. VTE prophylaxis: PO Eliquis. GI prophylaxis: PPI po. Patient is full code. Code status discussed with her on 04/22/17. Disposition: to be determined. PT/OT.
[2017-04-23] MEDS: Magnesium Oxide 400 MG Tablet PO (22:34)
[2017-04-23] MEDS: Gabapentin 600 MG Tablet PO (22:36)
[2017-04-23] MEDS: Atorvastatin Calcium 40 MG Tablet PO (22:38)
[2017-04-23 22:51] LABS: Bedside Glucose 242 mg/dL (70-110)
[2017-04-24] VITALS (11 sets, daily range): BP systolic 121–147; BP diastolic 58–102; PULSE 54–77; RESP 16–20; TEMP 36.3–36.8; O2SAT 93–97
[2017-04-24] MEDS: oxyCODONE 5 MG Tablet PO ×4 (00:13→21:57)
[2017-04-24] MEDS: LORazepam 0.5 MG Tablet PO ×3 (06:37→21:58)
[2017-04-24] MEDS: 0.9% Normal Saline 1,000 ML 75 ML IV ×2 (06:43→20:28)
[2017-04-24 06:46] LABS: Bedside Glucose 179 mg/dL (70-110)
[2017-04-24] MEDS: Ipratropium/Albuterol Sulfate 3 ML AMPUL.NEB INHALATION ×3 (07:52→18:56)
[2017-04-24 08:25] LABS: Hematocrit 36.6 % (37-47); Hemoglobin 10.7 g/dl (12.0-15.0); Mean Corp Hgb Conc 29.2 g/gl (32-36); Mean Corpuscular Hgb 26.7 pg (27.0-32.0); Mean Corpuscular Volume 91.3 fL (81-99); Mean Platelet Vol. 9.4 fl (6.2-12.0); Platelet Count 273 K/mm3 (150-450); RBC Distribution Width CV 18.3 % (11.6-14.6); RBC Distribution Width SD 61.1 fl (35.1-43.9); Red Blood Count 4.01 M/mm3 (4.2-5.4); White Blood Count 9.3 K/mm3 (4.4-11.0)
[2017-04-24 08:26] LABS: Scan Indicated on CBC? Y/N NO
[2017-04-24 08:47] LABS: Anion Gap 7 (5-15); BUN 14 mg/dL (7-18); BUN/Creat Ratio 17.2 RATIO (10-20); Calcium,Total 8.8 mg/dL (8.5-10.1); Chloride 97 mmol/L (98-107); Creatinine, Serum 0.81 mg/dL (0.55-1.02); EST Glomerular Filtration Rate 73 mL/min (>60); Est Glom Filt Rate - Afr Amer 88 mL/min (>60); Estimated Creatinine Clearance 49.64 ml/min; Glucose 180 mg/dL (70-110); Potassium 3.9 mmol/L (3.5-5.1); Sodium Level 138 mmol/L (136-145)
[2017-04-24] MEDS: Ferrous Sulfate 325 MG Tablet PO (09:01)
[2017-04-24] MEDS: Isosorbide Mononitrate 30 MG Tablet PO (09:04)
[2017-04-24] MEDS: Tolterodine Tartrate 2 MG CAP.SA PO (09:05)
[2017-04-24] MEDS: Venlafaxine XR 75 MG Capsule 225 MG PO (09:05)
[2017-04-24] MEDS: Pantoprazole Sodium 40 MG Tablet PO (09:05)
[2017-04-24] MEDS: Gabapentin 300 MG Capsule PO ×2 (09:05→16:25)
[2017-04-24] MEDS: Spironolactone 25 MG Tablet PO (09:05)
[2017-04-24] MEDS: guaiFENesin 1,200 MG Tablet 1200 MG PO ×2 (09:05→22:21)
[2017-04-24] MEDS: Multivitamins,Therapeutic Tablet 1 TABLET PO (09:05)
[2017-04-24] MEDS: Polyethylene Glycol 3350 17 GM PACKET PO (09:06)
[2017-04-24] MEDS: APIXABAN 5 MG TABLET PO ×2 (09:06→22:22)
[2017-04-24] MEDS: Furosemide 80 MG Tablet PO (09:08)
[2017-04-24] MEDS: Acetaminophen 325 MG Tablet 650 MG PO (09:17)
[2017-04-24 11:41] LABS: Bedside Glucose 311 mg/dL (70-110)
[2017-04-24] MEDS: Furosemide 40 MG Tablet PO (12:17)
--- NOTE | 2017-04-24 13:53 | PCM.PROGNOTE ---
Patient Problems: Active and Suspected Problems Acute cystitis (Acute) Mental status change (Acute) Subjective: She feels well today. She is awake, alert, and oriented. She denied of any chest pain, has cough with minimal non-discolored sputum. Objective: - Physical Exam General: Alert, Oriented x3, Cooperative, Well developed, Well nourished HEENT: Atraumatic, PERRLA, Normocephalic Oral: Moist Mucosa Neck: Supple, No JVD, Negative Carotid Bruits Lungs: No rhonchi, No wheeze, No rales, Diminished Cardiovascular: Regular rate, Regular Rhythm, Normal S1, Normal S2, No murmurs Abdomen: Bowel Sounds Present, Soft, Non Tender, Non-Distended, Obese Extremities: - - There is no cyanosis or clubbing. Peripheral pulses are palpable. There is no edema. Fixed left ankle from previous infection. Skin: No rashes, No breakdown, - - diffuse purpura of distal arms. Musculoskeletal: No Tenderness to Palpation of Joints or Extremities, No Muscle Wasting Lymphatic: No Cervical, Supraclavicular, or Inguinal Adenopathy Neurological: Cranial nerves II-XII grossly intact, Neuro grossly intact Psych/Mental Status: Normal Affect, Anxious, Alert and oriented to time, place, person, mood and affect Diagnostic Data Chest X-Ray 04/22/17 09:45 IMPRESSION: CHF with small bilateral pleural effusions left greater than right and bibasilar atelectasis and/or infiltration. Electronically Signed: Rusty Martines MD at 10:50 EDT Tel [phone], Service support , Active Medications Acetaminophen (Tylenol) 650 mg PO Q6H PRN PRN PRN Reason: Mild Pain (scale 0-3)/T>100.7 Last Admin: 04/24/17 09:17 Dose: 650 mg Albuterol Sulfate (Ventolin Aerosols) 2.5 mg INHALATION Q2H PRN PRN PRN Reason: DYSPNEA Albuterol/Ipratropium (Duoneb) 3 ml INHALATION Q6HWA.RT [facility] Last Admin: 04/24/17 12:44 Dose: 3 ml Apixaban (Eliquis) 5 mg PO BID [facility] Last Admin: 04/24/17 09:06 Dose: 5 mg Atorvastatin Calcium (Lipitor) 40 mg PO QHS [facility] Last Admin: 04/23/17 22:38 Dose: 40 mg Bisacodyl (Dulcolax) 10 mg PO DAILY PRN PRN PRN Reason: Constipation Dextrose (D50w Syringe) 0 gm IV X1 PRN; Protocol PRN Reason: Hypoglycemia Docusate Sodium (Colace) 200 mg PO BID PRN PRN PRN Reason: Constipation Ferrous S[facility] ([facility] S[facility]) [facility] Admin: 04/24/17 09:01 Dose: 325 mg Furosemide (Lasix) 40 mg PO LUNCH [facility] Last Admin: 04/24/17 12:17 Dose: 40 mg Furosemide (Lasix) 80 mg PO DAILY@0800 [facility] Last Admin: 04/24/17 09:08 Dose: 80 mg Gabap[facility] ([facility]ontin) [facility] Last Admin: 04/24/17 09:05 Dose: 300 mg Gabapentin (Neurontin) 600 mg PO QHS [facility] Last Admin: 04/23/17 22:36 Dose: 600 mg Glucagon () 1 mg IM .X1 PRN PRN Reason: Hypoglycemia Guaifenesin (Mucinex) 1,200 mg PO BID [facility] Last Admin: 04/24/17 09:05 Dose: 1,200 mg Guaifenesin (Robitussin Dm) 10 ml PO Q6H PRN PRN PRN Reason: COUGH Ceftriaxone Sodium 1 gm/ N/A 50 mls @ 100 mls/hr IV Q24 [facility] Last Admin: 04/24/17 09:52 Dose: 100 mls/hr Sodium Chloride () 1,000 mls @ 75 mls/hr IV .[id number] [facility] Last Admin: 04/24/17 06:43 Dose: 75 mls/hr Insulin Aspart (Novolog Flexpen (Bkc)) 0 units SC ACHS [facility] PRN Reason: Protocol Last Admin: 04/24/17 11:27 Dose: 5 unit Insulin Detemir (Levemir (Bkc)) 35 units SC DAILY [facility] Last Admin: 04/24/17 09:08 Dose: 35 units Isosorbide Mononitrate (Imdur) 30 mg PO DAILY [facility] Last Admin: 04/24/17 09:04 Dose: 30 mg Lorazepam (Ativan) 0.5 mg PO TID PRN PRN PRN Reason: ANXIETY Last Admin: 04/24/17 06:37 Dose: 0.5 mg Magnesium Oxide (Mag-Ox 400) 400 mg PO QHS [facility] Last Admin: 04/23/17 22:34 Dose: 400 mg Multivitamins (Multivitamin) 1 tablet PO DAILY@0800 [facility] Last Admin: 04/24/17 09:05 Dose: 1 tablet Ondansetron HCl (Zofran) 4 mg IV Q6H PRN PRN PRN Reason: Nausea Oxycodone HCl (Oxyir) 5 mg PO Q6H PRN PRN PRN Reason: PAIN Last Admin: 04/24/17 13:30 Dose: 5 mg Pantoprazole Sodium (Protonix) 40 mg PO DAILY [facility] Last Admin: 04/24/17 09:05 Dose: 40 mg Polyethylene Glycol (Miralax) 17 gm PO DAILY [facility] Last Admin: 04/24/17 09:06 Dose: 17 gm Potassium Chloride (K-Dur) 20 meq PO QHS [facility] Last Admin: 04/23/17 22:33 Dose: 20 meq Sodium Chloride () 10 - 40 ml IV UD PRN PRN Reason: MULTILUMEN/HICMAN CATH FLUSH Spironolactone (Aldactone) 25 mg PO DAILY [facility] Last Admin: 04/24/17 09:05 Dose: 25 mg Tolterodine Tartrate (Detrol La) 2 mg PO DAILY [facility] Last Admin: 04/24/17 09:05 Dose: 2 mg Venlafaxine HCl (Effexor Xr) 225 mg PO DAILY [facility] Last Admin: 04/24/17 09:05 Dose: 225 mg - Physical Exam Vital Signs Temp Pulse Resp BP Pulse Ox 97.9 F 73 18 121/58 93 04/24/17 08:57 04/24/17 13:35 04/24/17 12:45 04/24/17 08:57 04/24/17 08:57 Oxygen Flow Rate 4 Oxygen Delivery Method Nasal Cannula Weight: 262 lb 5.601 oz Intake and Output for Last 24 Hours 04/22/17 04/23/17 04/24/17 23:59 23:59 23:59 Intake Total 2022 Output Total 400 Balance 1622 Laboratory Tests Past 24 Hrs 04/24/17 04/24/17 07:45 07:45 WBC 9.3 RBC 4.01 L Hgb 10.7 L Hct 36.6 L MCV 91.3 MCH 26.7 L MCHC 29.2 L RDW 18.3 H RDW Differential 61.1 H Plt Count 273 MPV 9.4 Sodium 138 Potassium 3.9 Chloride 97 L Carbon Dioxide 34.0 H Anion Gap 7 BUN 14 Creatinine 0.81 Estim Creat Clear Calc 49.64 Est GFR (MDRD) Af Amer 88 Est GFR (MDRD) Non-Af 73 BUN/Creatinine Ratio 17.2 Glucose 180 H Calcium 8.8 POC Glucose 04/24/17 04/24/17 04/23/17 11:26 06:36 22:30 POC Glucose 311 H 179 H 242 H 04/23/17 16:32 POC Glucose 319 H Assessment/Plan Active and Suspected Problems Acute cystitis (Acute) Mental status change (Acute) Patient is a 76 years old female with multiple medical problems, brought to ED for 2 days history of increasing lethargy and confusion, admitted on 04/22/17. She has chronic respiratory failure with home oxygen with underling COPD, probable obese hypoventilation syndrome, and untreated sleep apnea. In ED, she was found to have mildly elevated WBC to 14.6. Vital signs were stable, and UA was positive. Serum CO2 was 40, ABG was done. PH is 7.44 and PCO 2 is 63, which are actually close to her baseline. She did not wake up during the interview, history was taken from her . Other than hypersomnolence, lethargy, and confusion, no other symptoms. She has chronic productive cough which is unchanged, but she did not have any additional urinary symptoms. Following day, she is doing much better, awake and oriented. #1 Acute mental status change with delirium. Likely due to infectious process with acute cystitis. CO2 narcolepsy is possible, but her PCO2 appears to be close to her baseline. She is doing better on the following day, probably due to infectious process as the underling problems. Treat cystitis with antibiotics. #2 Acute cystitis. Await blood culture and urine culture. UA positive. Ceftriaxone 1 gram IVPB once a day. #3 Chronic respiratory failure with hypoxemia and hypercapnia. Continue oxygen. She is on bronchodilator aerosol treatment only. Continue. Keep Oxygen saturation just around 90% to avoid worsening of CO2 retention. #4 COPD. With untreated sleep apnea and probable obese hypoventilation. She had refused CPAP in the past. 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 Reduce Levemir to 25 units once a day from bid due to her mental status change. Restart meal time insulin with reduced dose, 5 units TICAC (10 units tid at home). Sliding scale insulin. BS check AC/HS. #6 Atrial fibrillation, chronic. Telemetry monitoring. Rate controlled without negative chronotropic agents. On Eliquis for anticoagulation. #7 Coronary artery disease. Continue statin. She is not on BB or aspirin. #8 chronic CHF, with diastolic dysfunction. 2D-echocardiogram 12/15/16 showed preserved LV function, EF 65%. LVH. RVSP 42 mmHg. She is dry. IVF today. Hold Lasix. Reevaluate in AM. #9 Mild pulmonary hypertension. RVSP 42 mmHg as above per 2D-echocardiogram. She is on oxygen. VTE prophylaxis: PO Eliquis. GI prophylaxis: PPI po. Patient is full code. Code status discussed with her on 04/22/17. Disposition: Anticipate rehab at SNF.
--- NOTE | 2017-04-24 14:00 | PN_ITS ---
Patient Problems: Active and Suspected Problems Acute cystitis (Acute) Mental status change (Acute) Subjective: She feels well today. She is awake, alert, and oriented. She denied of any chest pain, has cough with minimal non-discolored sputum. Objective: - Physical Exam General: Alert, Oriented x3, Cooperative, Well developed, Well nourished HEENT: Atraumatic, PERRLA, Normocephalic Oral: Moist Mucosa Neck: Supple, No JVD, Negative Carotid Bruits Lungs: No rhonchi, No wheeze, No rales, Diminished Cardiovascular: Regular rate, Regular Rhythm, Normal S1, Normal S2, No murmurs Abdomen: Bowel Sounds Present, Soft, Non Tender, Non-Distended, Obese Extremities: - - There is no cyanosis or clubbing. Peripheral pulses are palpable. There is no edema. Fixed left ankle from previous infection. Skin: No rashes, No breakdown, - - diffuse purpura of distal arms. Musculoskeletal: No Tenderness to Palpation of Joints or Extremities, No Muscle Wasting Lymphatic: No Cervical, Supraclavicular, or Inguinal Adenopathy Neurological: Cranial nerves II-XII grossly intact, Neuro grossly intact Psych/Mental Status: Normal Affect, Anxious, Alert and oriented to time, place, person, mood and affect Diagnostic Data Chest X-Ray 04/22/17 09:45 IMPRESSION: CHF with small bilateral pleural effusions left greater than right and bibasilar atelectasis and/or infiltration. Electronically Signed: Rusty Martines MD at 10:50 EDT Tel [phone], Service support , Active Medications Acetaminophen (Tylenol) 650 mg PO Q6H PRN PRN PRN Reason: Mild Pain (scale 0-3)/T>100.7 Last Admin: 04/24/17 09:17 Dose: 650 mg Albuterol Sulfate (Ventolin Aerosols) 2.5 mg INHALATION Q2H PRN PRN PRN Reason: DYSPNEA Albuterol/Ipratropium (Duoneb) 3 ml INHALATION Q6HWA.RT [facility] Last Admin: 04/24/17 12:44 Dose: 3 ml Apixaban (Eliquis) 5 mg PO BID [facility] Last Admin: 04/24/17 09:06 Dose: 5 mg Atorvastatin Calcium (Lipitor) 40 mg PO QHS [facility] Last Admin: 04/23/17 22:38 Dose: 40 mg Bisacodyl (Dulcolax) 10 mg PO DAILY PRN PRN PRN Reason: Constipation Dextrose (D50w Syringe) 0 gm IV X1 PRN; Protocol PRN Reason: Hypoglycemia Docusate Sodium (Colace) 200 mg PO BID PRN PRN PRN Reason: Constipation Ferrous Sulfate ([facility]ulfate) [facility] Last Admin: 04/24/17 09:01 Dose: 325 mg Furosemide (Lasix) 40 mg PO LUNCH [facility] Last Admin: 04/24/17 12:17 Dose: 40 mg Furosemide (Lasix) 80 mg PO DAILY@0800 [facility] Last Admin: 04/24/17 09:08 Dose: 80 mg Gabap[facility] ([facility]ontin) [facility] Last Admin: 04/24/17 09:05 Dose: 300 mg Gabapentin (Neurontin) 600 mg PO QHS [facility] Last Admin: 04/23/17 22:36 Dose: 600 mg Glucagon () 1 mg IM .X1 PRN PRN Reason: Hypoglycemia Guaifenesin (Mucinex) 1,200 mg PO BID [facility] Last Admin: 04/24/17 09:05 Dose: 1,200 mg Guaifenesin (Robitussin Dm) 10 ml PO Q6H PRN PRN PRN Reason: COUGH Ceftriaxone Sodium 1 gm/ N/A 50 mls @ 100 mls/hr IV Q24 [facility] Last Admin: 04/24/17 09:52 Dose: 100 mls/hr Sodium Chloride () 1,000 mls @ 75 mls/hr IV .[id number] [facility] Last Admin: 04/24/17 06:43 Dose: 75 mls/hr Insulin Aspart (Novolog Flexpen (Bkc)) 0 units SC ACHS [facility] PRN Reason: Protocol Last Admin: 04/24/17 11:27 Dose: 5 unit Insulin Detemir (Levemir (Bkc)) 35 units SC DAILY [facility] Last Admin: 04/24/17 09:08 Dose: 35 units Isosorbide Mononitrate (Imdur) 30 mg PO DAILY [facility] Last Admin: 04/24/17 09:04 Dose: 30 mg Lorazepam (Ativan) 0.5 mg PO TID PRN PRN PRN Reason: ANXIETY Last Admin: 04/24/17 06:37 Dose: 0.5 mg Magnesium Oxide (Mag-Ox 400) 400 mg PO QHS [facility] Last Admin: 04/23/17 22:34 Dose: 400 mg Multivitamins (Multivitamin) 1 tablet PO DAILY@0800 [facility] Last Admin: 04/24/17 09:05 Dose: 1 tablet Ondansetron HCl (Zofran) 4 mg IV Q6H PRN PRN PRN Reason: Nausea Oxycodone HCl (Oxyir) 5 mg PO Q6H PRN PRN PRN Reason: PAIN Last Admin: 04/24/17 13:30 Dose: 5 mg Pantoprazole Sodium (Protonix) 40 mg PO DAILY [facility] Last Admin: 04/24/17 09:05 Dose: 40 mg Polyethylene Glycol (Miralax) 17 gm PO DAILY [facility] Last Admin: 04/24/17 09:06 Dose: 17 gm Potassium Chloride (K-Dur) 20 meq PO QHS [facility] Last Admin: 04/23/17 22:33 Dose: 20 meq Sodium Chloride () 10 - 40 ml IV UD PRN PRN Reason: MULTILUMEN/HICMAN CATH FLUSH Spironolactone (Aldactone) 25 mg PO DAILY [facility] Last Admin: 04/24/17 09:05 Dose: 25 mg Tolterodine Tartrate (Detrol La) 2 mg PO DAILY [facility] Last Admin: 04/24/17 09:05 Dose: 2 mg Venlafaxine HCl (Effexor Xr) 225 mg PO DAILY [facility] Last Admin: 04/24/17 09:05 Dose: 225 mg - Physical Exam Vital Signs Temp Pulse Resp BP Pulse Ox 97.9 F 73 18 121/58 93 04/24/17 08:57 04/24/17 13:35 04/24/17 12:45 04/24/17 08:57 04/24/17 08:57 Oxygen Flow Rate 4 Oxygen Delivery Method Nasal Cannula Weight: 262 lb 5.601 oz Intake and Output for Last 24 Hours 04/22/17 04/23/17 04/24/17 23:59 23:59 23:59 Intake Total 2022 Output Total 400 Balance 1622 Laboratory Tests Past 24 Hrs 04/24/17 04/24/17 07:45 07:45 WBC 9.3 RBC 4.01 L Hgb 10.7 L Hct 36.6 L MCV 91.3 MCH 26.7 L MCHC 29.2 L RDW 18.3 H RDW Differential 61.1 H Plt Count 273 MPV 9.4 Sodium 138 Potassium 3.9 Chloride 97 L Carbon Dioxide 34.0 H Anion Gap 7 BUN 14 Creatinine 0.81 Estim Creat Clear Calc 49.64 Est GFR (MDRD) Af Amer 88 Est GFR (MDRD) Non-Af 73 BUN/Creatinine Ratio 17.2 Glucose 180 H Calcium 8.8 POC Glucose 04/24/17 04/24/17 04/23/17 11:26 06:36 22:30 POC Glucose 311 H 179 H 242 H 04/23/17 16:32 POC Glucose 319 H Assessment/Plan Active and Suspected Problems Acute cystitis (Acute) Mental status change (Acute) Patient is a 76 years old female with multiple medical problems, brought to ED for 2 days history of increasing lethargy and confusion, admitted on 04/22/17. She has chronic respiratory failure with home oxygen with underling COPD, probable obese hypoventilation syndrome, and untreated sleep apnea. In ED , she was found to have mildly elevated WBC to 14.6. Vital signs were stable, and UA was positive. Serum CO2 was 40, ABG was done. PH is 7.44 and PCO 2 is 63, which are actually close to her baseline. She did not wake up during the interview, history was taken from her . Other than hypersomnolence, lethargy, and confusion, no other symptoms. She has chronic productive cough which is unchanged, but she did not have any additional urinary symptoms. Following day, she is doing much better, awake and oriented. #1 Acute mental status change with delirium. Likely due to infectious process with acute cystitis. CO2 narcolepsy is possible, but her PCO2 appears to be close to her baseline. She is doing better on the following day, probably due to infectious process as the underling problems. Treat cystitis with antibiotics. #2 Acute cystitis. Await blood culture and urine culture. UA positive. Ceftriaxone 1 gram IVPB once a day. #3 Chronic respiratory failure with hypoxemia and hypercapnia. Continue oxygen. She is on bronchodilator aerosol treatment only. Continue. Keep Oxygen saturation just around 90% to avoid worsening of CO2 retention. #4 COPD. With untreated sleep apnea and probable obese hypoventilation. She had refused CPAP in the past. 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 Reduce Levemir to 25 units once a day from bid due to her mental status change. Restart meal time insulin with reduced dose, 5 units TICAC (10 units tid at home ). Sliding scale insulin. BS check AC/HS. #6 Atrial fibrillation, chronic. Telemetry monitoring. Rate controlled without negative chronotropic agents. On Eliquis for anticoagulation. #7 Coronary artery disease. Continue statin. She is not on BB or aspirin. #8 chronic CHF, with diastolic dysfunction. 2D-echocardiogram 12/15/16 showed preserved LV function, EF 65%. LVH. RVSP 42 mmHg. She is dry. IVF today. Hold Lasix. Reevaluate in AM. #9 Mild pulmonary hypertension. RVSP 42 mmHg as above per 2D-echocardiogram. She is on oxygen. VTE prophylaxis: PO Eliquis. GI prophylaxis: PPI po. Patient is full code. Code status discussed with her on 04/22/17. Disposition: Anticipate rehab at SNF.
--- NOTE | 2017-04-24 14:47 | NURSING ---
Pt. requests Ativan for anxiety.
[2017-04-24 16:31] LABS: Bedside Glucose 295 mg/dL (70-110)
[2017-04-24] MEDS: Magnesium Oxide 400 MG Tablet PO (22:21)
[2017-04-24] MEDS: Atorvastatin Calcium 40 MG Tablet PO (22:22)
[2017-04-24] MEDS: Gabapentin 600 MG Tablet PO (22:33)
[2017-04-24 22:40] LABS: Bedside Glucose 219 mg/dL (70-110)
[2017-04-25] VITALS (13 sets, daily range): BP systolic 138–160; BP diastolic 67–82; PULSE 64–81; RESP 18–24; TEMP 36.6–37; O2SAT 94–97
[2017-04-25] MEDS: LORazepam 0.5 MG Tablet PO ×2 (06:44→20:43)
[2017-04-25] MEDS: oxyCODONE 5 MG Tablet PO (06:44)
[2017-04-25 07:06] LABS: Bedside Glucose 195 mg/dL (70-110)
[2017-04-25] MEDS: Ipratropium/Albuterol Sulfate 3 ML AMPUL.NEB INHALATION ×3 (07:07→19:23)
[2017-04-25 08:20] LABS: Hematocrit 35.9 % (37-47); Hemoglobin 10.4 g/dl (12.0-15.0); Mean Corpuscular Hgb 26.7 pg (27.0-32.0); Mean Corpuscular Volume 92.3 fL (81-99); Mean Platelet Vol. 9.2 fl (6.2-12.0); Platelet Count 272 K/mm3 (150-450); RBC Distribution Width CV 18.5 % (11.6-14.6); RBC Distribution Width SD 61.7 fl (35.1-43.9); Red Blood Count 3.89 M/mm3 (4.2-5.4); White Blood Count 8.2 K/mm3 (4.4-11.0)
[2017-04-25 08:21] LABS: Scan Indicated on CBC? Y/N NO
[2017-04-25 08:26] LABS: Anion Gap 6 (5-15); BUN 9 mg/dL (7-18); BUN/Creat Ratio 10.7 RATIO (10-20); Calcium,Total 8.6 mg/dL (8.5-10.1); Chloride 100 mmol/L (98-107); Creatinine, Serum 0.84 mg/dL (0.55-1.02); EST Glomerular Filtration Rate 70 mL/min (>60); Est Glom Filt Rate - Afr Amer 85 mL/min (>60); Estimated Creatinine Clearance 47.87 ml/min; Glucose 176 mg/dL (70-110); Sodium Level 140 mmol/L (136-145)
--- NOTE | 2017-04-25 09:44 | PN_ITS ---
Patient Problems: Active and Suspected Problems Acute cystitis (Acute) Mental status change (Acute) Subjective: Patient seen and examined. According to the nurses, she is moving much. Seen with at the bedside, insist on being discharged home. Says she has had daughter to help at home. Denies any chest pain, dizziness, shortness of breath or fever. Appears alert oriented ?3 Objective: Physical Exam General: Alert, Oriented x3, Cooperative, Well developed, Well nourished HEENT: Atraumatic, PERRLA, Normocephalic Oral: Moist Mucosa Neck: Supple, No JVD, Negative Carotid Bruits Lungs: No rhonchi, No wheeze, No rales, Diminished Cardiovascular: Regular rate, Regular Rhythm, Normal S1, Normal S2, No murmurs Abdomen: Bowel Sounds Present, Soft, Non Tender, Non-Distended, Obese Extremities: - - There is no cyanosis or clubbing. Peripheral pulses are palpable. There is no edema. Fixed left ankle from previous infection. Skin: No rashes, No breakdown, - - diffuse purpura of distal arms. Musculoskeletal: No Tenderness to Palpation of Joints or Extremities, No Muscle Wasting Lymphatic: No Cervical, Supraclavicular, or Inguinal Adenopathy Neurological: Cranial nerves II-XII grossly intact, Neuro grossly intact Psych/Mental Status: Normal Affect, Anxious, Alert and oriented to time, place, person, mood and affect Vitals/I&O's: Vital Signs Temp Pulse Resp BP Pulse Ox 98.3 F 81 24 160/82 96 04/25/17 04:30 04/25/17 08:00 04/25/17 07:09 04/25/17 04:30 04/25/17 07:09 Oxygen Flow Rate 4 Oxygen Delivery Method Nasal Cannula Weight: 121.5 kg Intake and Output for Last 24 Hours 04/23/17 04/24/17 04/25/17 23:59 23:59 23:59 Intake Total 3192 952 Output Total 900 Balance 2292 952 Laboratory Results 04/24/17 11:26: POC Glucose 311 H 04/24/17 16:22: POC Glucose 295 H 04/24/17 22:19: POC Glucose 219 H 04/25/17 06:47: POC Glucose 195 H 04/25/17 07:50: WBC 8.2, RBC 3.89 L, Hgb 10.4 L, Hct 35.9 L, MCV 92.3, MCH 26.7 L, MCHC 29.0 L, RDW 18.5 H, RDW Differential 61.7 H, Plt Count 272, MPV 9.2 04/25/17 07:50: Sodium 140, Potassium 4.0, Chloride 100, Carbon Dioxide 34.0 H, Anion Gap 6, BUN 9, Creatinine 0.84, Estim Creat Clear Calc 47.87, Est GFR (MDRD ) Af Amer 85, Est GFR (MDRD) Non-Af 70, BUN/Creatinine Ratio 10.7, Glucose 176 H , Calcium 8.6 Current Medications Acetaminophen (Tylenol) 650 mg PO Q6H PRN PRN PRN Reason: Mild Pain (scale 0-3)/T>100.7 Last Admin: 04/24/17 09:17 Dose: 650 mg Albuterol Sulfate (Ventolin Aerosols) 2.5 mg INHALATION Q2H PRN PRN PRN Reason: DYSPNEA Albuterol/Ipratropium (Duoneb) 3 ml INHALATION Q6HWA.RT [facility] Last Admin: 04/25/17 07:07 Dose: 3 ml Apixaban (Eliquis) 5 mg PO BID [facility] Last Admin: 04/24/17 22:22 Dose: 5 mg Atorvastatin Calcium (Lipitor) 40 mg PO QHS [facility] Last Admin: 04/24/17 22:22 Dose: 40 mg Bisacodyl (Dulcolax) 10 mg PO DAILY PRN PRN PRN Reason: Constipation Dextrose (D50w Syringe) 0 gm IV X1 PRN; Protocol PRN Reason: Hypoglycemia Docusate Sodium (Colace) 200 mg PO BID PRN PRN PRN Reason: Constipation [facility]ous [facility] ([facility]ous Sulfate) [facility] Last Admin: 04/24/17 09:01 Dose: 325 mg Furosemide (Lasix) 40 mg PO LUNCH [facility] Last Admin: 04/24/17 12:17 Dose: 40 mg Furosemide (Lasix) 80 mg PO DAILY@0800 [facility] Last Admin: 04/24/17 09:08 Dose: 80 mg Gabapentin (Neurontin) 300 [facility] Last Admin: 04/24/17 16:25 Dose: 300 mg Gabapentin (Neurontin) 600 mg PO QHS [facility] Last Admin: 04/24/17 22:33 Dose: 600 mg Glucagon () 1 mg IM .X1 PRN PRN Reason: Hypoglycemia Guaifenesin (Mucinex) 1,200 mg PO BID [facility] Last Admin: 04/24/17 22:21 Dose: 1,200 mg Guaifenesin (Robitussin Dm) 10 ml PO Q6H PRN PRN PRN Reason: COUGH Ceftriaxone Sodium 1 gm/ N/A 50 mls @ 100 mls/hr IV Q24 [facility] Last Admin: 04/24/17 09:52 Dose: 100 mls/hr Sodium Chloride () 1,000 mls @ 75 mls/hr IV .[id number] [facility] Last Admin: 04/24/17 20:28 Dose: 75 mls/hr Insulin Aspart (Novolog Flexpen (Bkc)) 0 units SC ACHS [facility] PRN Reason: Protocol Last Admin: 04/25/17 06:50 Dose: 2 unit Insulin Aspart (Novolog Flexpen (Bkc)) 5 units SC TIDAC [facility] Last Admin: 04/25/17 06:49 Dose: 5 u Insulin Detemir (Levemir (Bkc)) 35 units SC DAILY [facility] Last Admin: 04/24/17 09:08 Dose: 35 units Isosorbide Mononitrate (Imdur) 30 mg PO DAILY [facility] Last Admin: 04/24/17 09:04 Dose: 30 mg Lorazepam (Ativan) 0.5 mg PO TID PRN PRN PRN Reason: ANXIETY Last Admin: 04/25/17 06:44 Dose: 0.5 mg Magnesium Oxide (Mag-Ox 400) 400 mg PO QHS [facility] Last Admin: 04/24/17 22:21 Dose: 400 mg Multivitamins (Multivitamin) 1 tablet PO DAILY@0800 [facility] Last Admin: 04/24/17 09:05 Dose: 1 tablet Ondansetron HCl (Zofran) 4 mg IV Q6H PRN PRN PRN Reason: Nausea Oxycodone HCl (Oxyir) 5 mg PO Q6H PRN PRN PRN Reason: PAIN Last Admin: 04/25/17 06:44 Dose: 5 mg Pantoprazole Sodium (Protonix) 40 mg PO DAILY [facility] Last Admin: 04/24/17 09:05 Dose: 40 mg Polyethylene Glycol (Miralax) 17 gm PO DAILY [facility] Last Admin: 04/24/17 09:06 Dose: 17 gm Potassium Chloride (K-Dur) 20 meq PO QHS [facility] Last Admin: 04/24/17 22:20 Dose: 20 meq Sodium Chloride () 10 - 40 ml IV UD PRN PRN Reason: MULTILUMEN/HICMAN CATH FLUSH Spironolactone (Aldactone) 25 mg PO DAILY [facility] Last Admin: 04/24/17 09:05 Dose: 25 mg Tolterodine Tartrate (Detrol La) 2 mg PO DAILY [facility] Last Admin: 04/24/17 09:05 Dose: 2 mg Venlafaxine HCl (Effexor Xr) 225 mg PO DAILY [facility] Last Admin: 04/24/17 09:05 Dose: 225 mg Assessment/Plan Active and Suspected Problems Acute cystitis (Acute) Mental status change (Acute) 76 years old female with multiple medical problems, brought to ED for 2 days history of increasing lethargy and confusion, on 04/22/17. She has chronic respiratory failure with home oxygen with underling COPD, probable obese hypoventilation syndrome, and untreated sleep apnea. 1. Acute mental status change secondary to acute cystitis, resolved 2. Acute cystitis, urine cultures growing yeast, likely contaminant, on IV ceftriaxone, will switch to oral antibiotics tomorrow to complete a total of 7 days 3. Chronic respiratory failure with hypoxemia and hypercapnia, baseline oxygen, continue to monitor and give breathing treatments as needed 4. COPD/MEL, untreated, OHS, needs to follow-up with sleep study in the outpatient 5. DM II, with neurological complications, blood sugars uncontrolled, would increase Levemir to 30 units daily, continue 5 units pre-meal insulin, monitor blood sugars better, will slowly resume close to home blood sugars. Continue Accu-Cheks with insulin sliding scale. 6. Atrial fibrillation, chronic, rate controlled, on Eliquis, continue to monitor on telemetry 7. Coronary artery disease, statin, not on beta-mack aspirin, needs to follow -up with her primary care or child caregiver private home in the outpatient 8. Chronic CHF, with diastolic dysfunction, euvolemic, Lasix on hold 9. Mild pulmonary hypertension 10. DVT prophylaxi on PO Eliquis 11. Disposition: Anticipate rehab at [facility].
[2017-04-25] MEDS: Venlafaxine XR 75 MG Capsule 225 MG PO (09:47)
[2017-04-25] MEDS: Ferrous Sulfate 325 MG Tablet PO (09:47)
[2017-04-25] MEDS: guaiFENesin 1,200 MG Tablet 1200 MG PO ×2 (09:48→22:09)
[2017-04-25] MEDS: Multivitamins,Therapeutic Tablet 1 TABLET PO (09:48)
[2017-04-25] MEDS: Furosemide 80 MG Tablet PO (09:48)
[2017-04-25] MEDS: Pantoprazole Sodium 40 MG Tablet PO (09:48)
[2017-04-25] MEDS: Isosorbide Mononitrate 30 MG Tablet PO (09:48)
[2017-04-25] MEDS: Spironolactone 25 MG Tablet PO (09:48)
[2017-04-25] MEDS: Gabapentin 300 MG Capsule PO ×2 (09:48→16:29)
[2017-04-25] MEDS: Polyethylene Glycol 3350 17 GM PACKET PO (09:49)
[2017-04-25] MEDS: Tolterodine Tartrate 2 MG CAP.SA PO (09:49)
[2017-04-25] MEDS: APIXABAN 5 MG TABLET PO ×2 (09:49→22:08)
[2017-04-25] MEDS: 0.9% Normal Saline 1,000 ML 75 ML IV ×2 (09:50→22:24)
[2017-04-25] MEDS: Acetaminophen 325 MG Tablet 650 MG PO (10:03)
[2017-04-25] MEDS: Furosemide 40 MG Tablet PO (12:17)
[2017-04-25 12:41] LABS: Bedside Glucose 277 mg/dL (70-110)
[2017-04-25 16:41] LABS: Bedside Glucose 277 mg/dL (70-110)
[2017-04-25] MEDS: Ondansetron 4 MG/2 ML Vial IV (21:28)
[2017-04-25] MEDS: Gabapentin 600 MG Tablet PO (22:08)
[2017-04-25] MEDS: Atorvastatin Calcium 40 MG Tablet PO (22:09)
[2017-04-25] MEDS: Magnesium Oxide 400 MG Tablet PO (22:10)
[2017-04-25] MEDS: guaiFENesin Dm 10 ML UDC PO (22:21)
[2017-04-25 23:26] LABS: Bedside Glucose 224 mg/dL (70-110)
[2017-04-26] VITALS (11 sets, daily range): BP systolic 129–181; BP diastolic 72–99; PULSE 64–90; RESP 20–22; TEMP 36.8–36.9; O2SAT 96–97
[2017-04-26] MEDS: oxyCODONE 5 MG Tablet PO ×2 (00:58→08:33)
[2017-04-26 02:16] LABS: Magnesium 2.1 mg/dL (1.8-2.4)
[2017-04-26] MEDS: Ipratropium/Albuterol Sulfate 3 ML AMPUL.NEB INHALATION ×2 (06:59→13:38)
[2017-04-26 07:35] LABS: Bedside Glucose 270 mg/dL (70-110)
[2017-04-26] MEDS: Gabapentin 300 MG Capsule PO (08:25)
[2017-04-26] MEDS: Furosemide 80 MG Tablet PO (08:25)
[2017-04-26] MEDS: Spironolactone 25 MG Tablet PO (08:26)
[2017-04-26] MEDS: Multivitamins,Therapeutic Tablet 1 TABLET PO (08:26)
[2017-04-26] MEDS: Venlafaxine XR 75 MG Capsule 225 MG PO (08:26)
[2017-04-26] MEDS: Pantoprazole Sodium 40 MG Tablet PO (08:26)
[2017-04-26] MEDS: Isosorbide Mononitrate 30 MG Tablet PO (08:27)
[2017-04-26] MEDS: Ferrous Sulfate 325 MG Tablet PO (08:27)
--- NOTE | 2017-04-26 08:48 | CASEMGMT ---
Social Work Face to face with the pt and her spouse to discuss discharge planning. Introduced self and role at [facility]. The pt and her spouse report that they are returning home. State that they have HH in place already. Discuss that the pt has had a 3 midnight stay and would qualify for placement through her Medicare. Pt declines and states that she will return home and spouse does not object. Inquire if they feel that they are able to manage at home at this time, and suggest a short-term stay for brief rehabilitation prior to discharge home as the pt has been hospitalized for a few days and generally pt's are more weak after a hospitalization. Pt again declines, she and spouse states that they can manage at home and would like home health care through [facility] resumed at discharge. Discussed with attending physician and plan will be for the pt to discharge this date. Call to [place] at [facility] to update on anticipated discharge this date. EMILY order faxed. Plan: Home with [facility]. TAMMIE Pierre
--- NOTE | 2017-04-26 09:51 | DCINST_ITS ---
- Discharge Diagnoses Current Active Problems: Current Active and Chronic Problems Acute cystitis (Acute) Mental status change (Acute) Reason(s) for Visit for Discharge Instructions: fatigue and confusion You will use the following diet at home:: Calorie/Carbohydrate Controlled ( specify 1200, 1400, etc), Cardiac Your food should be the consistency of: Regular Your liquids should be the consistency of: Regular/Thin Discharge Activity: Return to Normal Activity Weight Bearing Status: Weight bearing as tolerated Additional Instructions: Please note changes to your medications as discussed. Take your blood pressure daily and let your PCP know if SBP >160, or less than 110 to have BP meds adjusted. Keep a log of BS and let PCP know if they are running high. You need to have repeat blood work done in a week at your PCP office. Allergies/Adverse Reactions: Allergies No Known Allergies Allergy (Verified 04/22/17 09:23) Medications to take at Discharge Apixaban [Eliquis] 5 mg PO BID 03/31/17 Atorvastatin Calcium [Lipitor] 40 mg PO QHS 03/31/17 Ferrous Sulfate [Iron] 325 mg PO DAILY 03/31/17 Furosemide [Lasix] 40 mg PO LUNCH 03/31/17 Furosemide [Lasix] 80 mg PO DAILY 03/31/17 Gabapentin [Neurontin] 300 mg PO BIDCM 03/31/17 Gabapentin [Neurontin] 600 mg PO QHS 03/31/17 Guaifenesin [Mucinex] 1,200 mg PO BID 03/31/17 Insulin Aspart [Novolog Flexpen] 10 units SC TIDCM 03/31/17 Isosorbide Mononitrate [Imdur] 30 mg PO DAILY 03/31/17 Magnesium Oxide [Mag-Ox 400] 400 mg PO QHS 03/31/17 Multivitamins,Therapeutic [Multivitamin] 1 tablet PO DAILY 03/31/17 Oxybutynin [Ditropan] 5 mg PO DAILY 03/31/17 Oxycodone [Oxyir] 1 - 2 tab PO Q4H PRN 03/31/17 Pantoprazole Sodium [Protonix] 40 mg PO DAILY 03/31/17 Polyethylene Glycol 3350 [Miralax] 17 gm PO DAILY 03/31/17 Potassium Chloride [K-Dur] 20 meq PO QHS 03/31/17 Spironolactone [Aldactone] 25 mg PO DAILY 03/31/17 Venlafaxine HCl [Venlafaxine HCl ER] 225 mg PO DAILY 03/31/17 Insulin Aspart [Novolog Flexpen] See Protocol SC TIDCM 04/22/17 Ipratropium/Albuterol Sulfate [Duoneb] 3 ml INHALATION Q6HWA.RT 04/22/17 Lorazepam [Ativan] 0.5 mg PO TID PRN PRN 04/22/17 Amlodipine [Norvasc] 5 mg PO DAILY #30 tablet 04/26/17 Cefdinir [Omnicef [equiv]] 300 mg PO Q12H #6 capsule 04/26/17 Insulin Detemir [Levemir] 35 unit SQ DAILY #0 04/26/17 The following prescriptions were given: Amlodipine [Norvasc] 5 mg PO DAILY #30 tablet Cefdinir [Omnicef [equiv]] 300 mg PO Q12H #6 capsule Primary Care Physician: Jake Mcpherson MD [Primary Care Provider] - Please follow up with your Primary Care Physician in: within 1-2 weeks, repeat BMP to be done Proposed Discharge Date: 04/26/17
--- NOTE | 2017-04-26 09:56 | PCM.DC.SUM ---
Discharge Date and Diagnosis Date of Admission: 04/22/17 Date of Discharge: 04/26/17 - Primary Discharge Diagnosis Active and Suspected Problems Acute cystitis (Acute) Mental status change (Acute) - Secondary Discharge Diagnosis Chronic Problems Anxiety (Chronic) Atrial fibrillation (Chronic) Benign hypertension (Chronic) COPD, severe (Chronic) With chronic respiration failure Chronic low back pain (Chronic) Chronic respiratory failure (Chronic) On 4 L/m at baseline Coronary artery disease (Chronic) Status post CABG Diabetic gastroparesis (Chronic) Hx of CABG (Chronic) Hyperlipidemia (Chronic) Obesity (Chronic) S/P CABG x 3 (Chronic) Tobacco dependence syndrome (Chronic) Type II diabetes mellitus (Chronic) Hospital Course and Treatment Imaging Results: Clinical Impression(s) from Imaging Studies Chest X-Ray 04/22/17 09:45 IMPRESSION: CHF with small bilateral pleural effusions left greater than right and bibasilar atelectasis and/or infiltration. Electronically Signed: Rusty Martines MD at 10:50 EDT Tel [phone], Service support , Clinical Impression(s) from Imaging Studies Chest X-Ray 04/22/17 09:45 IMPRESSION: CHF with small bilateral pleural effusions left greater than right and bibasilar atelectasis and/or infiltration. Electronically Signed: Rusty Martines MD at 10:50 EDT Tel [phone], Service support , Operations: None Procedures: None Summary of Care Provided: 6 years old female with multiple medical problems, brought to ED for 2 days history of increasing lethargy and confusion, on 04/22/17. She has chronic respiratory failure with home oxygen with underling COPD, probable obese hypoventilation syndrome, and untreated sleep apnea. 1. Acute mental status change secondary to acute cystitis, resolved 2. Acute cystitis, urine cultures growing yeast, likely contaminant, discharged on cefdinir to complete a total of 7 days 3. Chronic respiratory failure with hypoxemia and hypercapnia, baseline oxygen 3L oxygen, follow-up with a paper wood cutter in outpatient 4. COPD/MEL, untreated, OHS, needs to follow-up with sleep study in the outpatient 5. DM II, with neurological complications, on Levemir to 30 units daily, continue 5 units pre-meal insulin, patient asked to monitor her blood sugars closely 6. Atrial fibrillation, chronic, rate controlled, on Eliquis, 7. Coronary artery disease, statin, not on beta-mack aspirin, needs to follow-up with her primary care or client business manager in the outpatient 8. Chronic CHF, with diastolic dysfunction, euvolemic, Lasix resumed 9. Mild pulmonary hypertension Discharge Diet: Low fat/ Low Cholesterol, 2000 mg Sodium Diet Discharge Activity: Return to Normal Activity Weight Bearing Status: Weight bearing as tolerated Home Medications: Medications to take at Discharge Apixaban [Eliquis] 5 mg PO BID 03/31/17 Atorvastatin Calcium [Lipitor] 40 mg PO QHS 03/31/17 Ferrous Sulfate [Iron] 325 mg PO DAILY 03/31/17 Furosemide [Lasix] 40 mg PO LUNCH 03/31/17 Furosemide [Lasix] 80 mg PO DAILY 03/31/17 Gabapentin [Neurontin] 300 mg PO BIDCM 03/31/17 Gabapentin [Neurontin] 600 mg PO QHS 03/31/17 Guaifenesin [Mucinex] 1,200 mg PO BID 03/31/17 Insulin Aspart [Novolog Flexpen] 10 units SC TIDCM 03/31/17 Isosorbide Mononitrate [Imdur] 30 mg PO DAILY 03/31/17 Magnesium Oxide [Mag-Ox 400] 400 mg PO QHS 03/31/17 Multivitamins,Therapeutic [Multivitamin] 1 tablet PO DAILY 03/31/17 Oxybutynin [Ditropan] 5 mg PO DAILY 03/31/17 Oxycodone [Oxyir] 1 - 2 tab PO Q4H PRN 03/31/17 Pantoprazole Sodium [Protonix] 40 mg PO DAILY 03/31/17 Polyethylene Glycol 3350 [Miralax] 17 gm PO DAILY 03/31/17 Potassium Chloride [K-Dur] 20 meq PO QHS 03/31/17 Spironolactone [Aldactone] 25 mg PO DAILY 03/31/17 Venlafaxine HCl [Venlafaxine HCl ER] 225 mg PO DAILY 03/31/17 Insulin Aspart [Novolog Flexpen] See Protocol SC TIDCM 04/22/17 Ipratropium/Albuterol Sulfate [Duoneb] 3 ml INHALATION Q6HWA.RT 04/22/17 Lorazepam [Ativan] 0.5 mg PO TID PRN PRN 04/22/17 Amlodipine [Norvasc] 5 mg PO DAILY #30 tablet 04/26/17 Cefdinir [Omnicef [equiv]] 300 mg PO Q12H #6 capsule 04/26/17 Insulin Detemir [Levemir] 35 unit SQ DAILY #0 04/26/17 Following Prescrptions Were Given to Patient: Amlodipine [Norvasc] 5 mg PO DAILY #30 tablet Cefdinir [Omnicef [equiv]] 300 mg PO Q12H #6 capsule Primary Care Physician: Jake Mcpherson MD [Primary Care Provider] - Please follow up with your Primary Care Physician in: within 1-2 weeks, repeat BMP to be done Disposition: Home with Home Health Minutes spent on discharge:: 25 Patient Condition:: Stable Meaningful Use Info Meaningful Use Diagnoses (Choose all that apply): None applicable
[2017-04-26] MEDS: amLODIPine 5 MG Tablet PO (10:44)
[2017-04-26] MEDS: guaiFENesin 1,200 MG Tablet 1200 MG PO (10:45)
[2017-04-26] MEDS: Polyethylene Glycol 3350 17 GM PACKET PO (10:45)
[2017-04-26] MEDS: Tolterodine Tartrate 2 MG CAP.SA PO (10:47)
[2017-04-26] MEDS: APIXABAN 5 MG TABLET PO (10:47)
[2017-04-26 11:21] LABS: Bedside Glucose 323 mg/dL (70-110)
[2017-04-26] MEDS: Furosemide 40 MG Tablet PO (12:16)
--- NOTE | 2017-04-26 16:09 | NURSING ---
Daughter called about no sliding scale noted on discharge plan, nurse called daughter and gave her the readings sliding scale readings as on the discharge by dr castañeda.
== END 2017-04-26 14:25 | disposition home health service (06) | DRG 689 ==
PROVIDERS: Family Medicine; Admitting Provider Hospitalist; Emergency Provider Emergency Medicine; Family Provider Family Medicine; PCP Family Medicine; Visit Provider Internal Medicine
DX: N30.00 Acute cystitis without hematuria (principal); G93.41 Metabolic encephalopathy; J96.11 Chronic respiratory failure with hypoxia; I50.32 Chronic diastolic (congestive) heart failure; J96.12 Chronic respiratory failure with hypercapnia; Z68.42 Body mass index [BMI] 45.0-49.9, adult; I27.2 Other secondary pulmonary hypertension; E11.43 Type 2 diabetes mellitus with diabetic autonomic (poly)neuropathy; K31.84 Gastroparesis; E11.65 Type 2 diabetes mellitus with hyperglycemia; I48.2 Chronic atrial fibrillation; I25.10 Atherosclerotic heart disease of native coronary artery without angina pectoris; F41.9 Anxiety disorder, unspecified; J44.9 Chronic obstructive pulmonary disease, unspecified; G89.29 Other chronic pain; M54.5 Low back pain; Z99.81 Dependence on supplemental oxygen; Z95.1 Presence of aortocoronary bypass graft; E78.5 Hyperlipidemia, unspecified; E66.9 Obesity, unspecified; Z87.891 Personal history of nicotine dependence; Z79.899 Other long term (current) drug therapy; Z79.4 Long term (current) use of insulin; R41.82 Altered mental status, unspecified
CPT/HCPCS: 36415; 36591; 36600; 71010; 80048; 80053; 81001; 82803; 82962; 83605; 83735; 84484; 85025; 85027; 85610; 85730; 87040; 87077; 87086; 87088; 87106; 93005; 94640; 97110; 97162; 97165; 97530; 99285; J7030; J7050; P9612; A4216; G8978; G8979; G8987; G8988; J2405